=== PATIENT | female | born 1935 | race Caucasian/White ===

== ENCOUNTER 2019-03-26 07:01 | Day surgery (SDC) | payer MEDICARE, OTHER ==
[~2019-03-26 07:01] MED LIST: Lactated Ringers 1,000 ML IV ONE
[2019-03-26 07:34] VITALS: O2SAT 95
[2019-03-26] MEDS ORDERED: Ak-Dilate OPHTHALMIC*** 1.065 ML, Cyclogyl 1% OPHTH SOL 5 ML 1.065 ML, GATIFLOXACIN 0.5... OP ONE ×4 (08:00)
[2019-03-26] MEDS ORDERED: Lactated Ringers 1,000 ML IV SCH (08:00)
[2019-03-26] MEDS ORDERED: TETRACAINE 0.5% STERI-UNIT SOL OP ONE ×2 (08:00)
[2019-03-26] MEDS ORDERED: DIPRIVAN 200 MG/20 ML IV ONE (09:32)
[2019-03-26] MEDS ORDERED: Zofran 4 MG/2 ML VIAL IV PRN (10:00)
[2019-03-26] MEDS ORDERED: BSS 500 ML, Fortaz/Tazicef 1 GM** 0.2 G IO ONE ×2 (10:00)
[2019-03-26] MEDS ORDERED: LIDOCAINE HCL 1% AMPUL 5 ML IJ ONE (10:00)
[2019-03-26] MEDS ORDERED: ACETAZOLAMIDE 250 MG TABLET PO ONE (10:00)
[2019-03-26] MEDS ORDERED: BETADINE 5% OPHTHALMIC 30 ML OP ONE (10:00)
[2019-03-26] MEDS ORDERED: Epinephrine Preservative Free 1 MG/ML INTRAOP ONE (10:00)
[2019-03-26 10:46] VITALS: BP 189/83; PULSE 64
--- NOTE | 2019-03-26 14:30 | OP ---
DATE/TIME OF OPERATION: 03/26/2019 0930 TIME DICTATED: 1321 PREOPERATIVE DIAGNOSIS: Senile cataract of left eye. POSTOPERATIVE DIAGNOSIS: Senile cataract of left eye. SURGEON: Nikolas Gunter MD MAIL OFFICER: None. OPERATION: Cataract extraction of left eye with an intraocular lens implant. STANDARD __X___ COMPLEX ANESTHESIA: MAC. ___X___ Monitored anesthesia care in combination with topical and intra-cameral anesthesia (because of the established specific risk of reflux, arrhythmias, or an anxiety attack associated with ocular manipulation as well as difficulty of the technical maintenance technician to manage such potentially catastrophic events while simultaneously attempting to complete the surgical procedure, it was deemed necessary for the patient's safety to have an anesthesiologist or a nurse cadastral surveyor present during the procedure whenever possible. The anesthesiologist or the nurse cadastral surveyor was utilized to monitor and regulate the intravenous sedation of the patient, so the patient was cooperative, relaxed, and comfortable). Topical anesthesia using Tetracaine eye drops together with intra cameral anesthesia using Lidocaine 1% MPF. The nurse was utilized to monitor the patient. ANESTHESIA PROVIDER: Wood Gibbs CRNA. COMPLICATIONS: None. BLOOD LOSS: None. INDICATIONS: The patient is undergoing cataract surgery in the hopes of eliminating the visual complaints and difficulty. PROCEDURE: After arriving at the facility's outpatient surgery area, an IV was started; the patient was given 5 mg of p.o. Versed. (If an anesthesia provider was not monitoring the patient) The patient was then given topical anesthetic Tetracaine eye drops. A cotton pellet was soaked into a solution of a combination of Zymaxid 0.5%, Clemente-Synephrine 2.5% and Ocufen (other drops might have been substituted referenced in the patient's record). The pellet was inserted by the RN into the lower conjunctival cul-de-sac with a sterile forceps and left for 20 minutes. The pellet was then removed by the RN with a sterile forceps before taking the patient to the operating room. The preoperative area nurse identified the patient and marked the correct eye to be operated on. I identified the correct eye to be operated on and marked it appropriately in the outpatient surgery area. The patient was then taken into the operating room. Tetracaine eye drops were installed again in the correct eye. The eyelids and the lashes and the lid margins were scrubbed with Betadine solution. One drop of the diluted Betadine solution was placed in the conjunctival cul-de-sac for 45 seconds and then was irrigated. A drop of Tetracaine Gel was placed in the conjunctival cul-de-sac. The patient's forehead was taped to secure it during the procedure. The patient was monitored. The patient was then draped in the usual way for this procedure. An eye speculum was used to separate the eyelids. The eye was then fixated and a temporal 2.5 mm incision was made in the clear cornea temporally at the limbus. Through the incision, 0.25 cc of 1% non-preserved lidocaine was injected into the anterior chamber for intracameral anesthesia. The anterior chamber was then filled with viscoelastic. The pupil was small. I felt that it would be safer to mechanically dilate the pupil. A Malyugin ring was used at this point which dilated the pupil. That was removed at the end of the procedure prior to aspiration of the viscoelastic from the anterior chamber and posterior to the intraocular lens implant. The cataract had a great amount of cortical changes. That rendered seeing the anterior capsule difficult for a safe performance of an anterior capsulotomy. I injected an air bubble into the anterior chamber. I then injected 1 ML of vision blue solution into the anterior chamber. The vision blue solution was irrigated from the anterior chamber after 30 seconds. The anterior capsule was stained which facilitated performing the anterior capsulotomy safely. After that was completed, a cystotome was introduced into the anterior chamber and a round anterior capsulotomy was performed. The capsule was removed by a forceps. Hydrodissection was next carried utilizing a 25-gauge cannula and balanced salt solution to delineate the cortical material from the capsule and the nucleus from the cortical material. The nucleus was rotated freely into the capsular bag with no difficulty. The phaco tip of the [employer] Phacoemulsifier was introduced into the anterior chamber and two grooves were made into the nucleus 90 degrees apart. Using two spatulas resulted into the nucleus being fractured into four quadrants. The phaco tip was then used to remove each quadrant of the nucleus. Viscoelastic was used during this process to protect the corneal endothelium. Once the entire nucleus was removed, the phaco tip then was removed and the irrigation tip was introduced into the eye and the cortex was removed. The posterior capsule was polished. It was noticed that there was a tear into the posterior capsule with few vitreous strands into the pupil plan. An anterior vitrectomy was performed. A 20.00 diopter, SN60WF, posterior chamber lens implant, was inspected and found to be grossly normal. The implant was inserted into the implant injector cartridge; Viscoelastic again was introduced into the anterior chamber, which filled the capsular bag. The implant injector's cartridge tip was placed at the limbal wound and the posterior chamber implant was released into the capsular bag and rotated appropriately. The implant was found to be into the capsular bag and it was centered. 0.2 ml of Tri-Moxi was introduced via 27 gauge cannula into the vitreous cavity through the ciliary processes. Viscoelastic was aspirated from the anterior chamber and posterior to the intraocular lens implant from the capsular bag using the irrigating tip. The anterior chamber was irrigated and filled with 5 cc antibiotic solution (500 cc of BSS plus 2 ml of Fortaz 100 mg/ml) ( if patient was not allergic to the medication). The lips of the corneal incision were hydrated using BSS solution. The anterior chamber was checked and found to be water tight. ___X___ One drop each of antibiotic, steroid and NSAID drops (refer to chart for drops used) were placed in the conjunctival cul-de-sac of the operated eye. Patient tolerated the procedure quite well and left the operating room in satisfactory condition. DISCHARGE SUMMARY: The patient was released in stable condition. The patient and those with the patient were given an instruction sheet as of how to care for the eye after surgery as well as counseling on any abnormal laboratory studies by the postoperative RN. The patient was also given an appointment card for follow-up in the office and is to call immediately for any difficulties including but not limited to pain in the eye, decreased vision, discharge from the eye, headache and or fever. DISCHARGE DIAGNOSIS: Pseudophakia of left eye.
== END 2019-03-26 10:50 | disposition home or self-care (01) ==
LOC: SDC 07:01
PROVIDERS: ATTEND Ophthalmology
DX: H25.812 Combined forms of age-related cataract, left eye (principal)
CPT/HCPCS: 99100; C1780; J0171; J2704; A9270-GY

== ENCOUNTER 2019-04-23 09:01 | Day surgery (SDC) | payer MEDICARE, OTHER ==
[~2019-04-23 09:01] MED LIST changes: +Ak-Dilate OPHTHALMIC*** 1.065 ML, Cyclogyl 1% OPHTH SOL 5 ML 1.065 ML, GATIFLOXACIN 0.5... OP ONE; +Lactated Ringers 1,000 ML IV SCH; +TETRACAINE 0.5% STERI-UNIT SOL OP ONE
[2019-04-23] MEDS ORDERED: ACETAZOLAMIDE 250 MG TABLET PO ONE (10:00)
[2019-04-23] MEDS ORDERED: BETADINE 5% OPHTHALMIC 30 ML OP ONE (10:00)
[2019-04-23] MEDS ORDERED: BSS 500 ML, Fortaz/Tazicef 1 GM** 0.2 G IO ONE ×2 (10:00)
[2019-04-23] MEDS ORDERED: Zofran 4 MG/2 ML VIAL IV PRN (10:00)
[2019-04-23] MEDS ORDERED: LIDOCAINE HCL 1% AMPUL 5 ML IJ ONE (10:00)
[2019-04-23] MEDS ORDERED: Epinephrine Preservative Free 1 MG/ML INTRAOP ONE (10:00)
[2019-04-23] MEDS ORDERED: DIPRIVAN 200 MG/20 ML IV ONE (11:43)
[2019-04-23] MEDS ORDERED: TRANDATE 100 MG/20 ML MDV FOR DRIP IV ONE (12:24)
--- NOTE | 2019-04-23 15:45 | OP ---
DATE/TIME OF OPERATION: 04/23/2019 1145 TIME DICTATED: 1442 PREOPERATIVE DIAGNOSIS: Senile cataract of right eye. POSTOPERATIVE DIAGNOSIS: Senile cataract of right eye. SURGEON: Nikolas Gunter MD GI PHYSICIAN: None. OPERATION: Cataract extraction of right eye with an intraocular lens implant. STANDARD __X__ COMPLEX ANESTHESIA: MAC. ___X___ Monitored anesthesia care in combination with topical and intra-cameral anesthesia (because of the established specific risk of reflux, arrhythmias, or an anxiety attack associated with ocular manipulation as well as difficulty of the tree puller to manage such potentially catastrophic events while simultaneously attempting to complete the surgical procedure, it was deemed necessary for the patient's safety to have an anesthesiologist or a nurse consultant [employer]. vice [employer] (ex ) present during the procedure whenever possible. The anesthesiologist or the nurse consultant luxury and [employer]. vice president [employer] (ex ) was utilized to monitor and regulate the intravenous sedation of the patient, so the patient was cooperative, relaxed, and comfortable). Topical anesthesia using Tetracaine eye drops together with intra cameral anesthesia using Lidocaine 1% MPF. The nurse was utilized to monitor the patient. ANESTHESIA PROVIDER: Wood Gibbs CRNA. COMPLICATIONS: None. BLOOD LOSS: None. INDICATIONS: The patient is undergoing cataract surgery in the hopes of eliminating the visual complaints and difficulty. PROCEDURE: After arriving at the facility's outpatient surgery area, an IV was started; the patient was given 5 mg of p.o. Versed. (If an anesthesia provider was not monitoring the patient) The patient was then given topical anesthetic Tetracaine eye drops. A cotton pellet was soaked into a solution of a combination of Zymaxid 0.5%, Clemente-Synephrine 2.5% and Ocufen (other drops might have been substituted referenced in the patient's record). The pellet was inserted by the RN into the lower conjunctival cul-de-sac with a sterile forceps and left for 20 minutes. The pellet was then removed by the RN with a sterile forceps before taking the patient to the operating room. The preoperative area nurse identified the patient and marked the correct eye to be operated on. I identified the correct eye to be operated on and marked it appropriately in the outpatient surgery area. The patient was then taken into the operating room. Tetracaine eye drops were installed again in the correct eye. The eyelids and the lashes and the lid margins were scrubbed with Betadine solution. One drop of the diluted Betadine solution was placed in the conjunctival cul-de-sac for 45 seconds and then was irrigated. A drop of Tetracaine Gel was placed in the conjunctival cul-de-sac. The patient's forehead was taped to secure it during the procedure. The patient was monitored. The patient was then draped in the usual way for this procedure. An eye speculum was used to separate the eyelids. The eye was then fixated and a temporal 2.5 mm incision was made in the clear cornea temporally at the limbus. Through the incision, 0.25 cc of 1% non-preserved lidocaine was injected into the anterior chamber for intracameral anesthesia. The anterior chamber was then filled with viscoelastic. The pupil was small. I felt that it would be safer to mechanically dilate the pupil. A Malyugin ring was used at this point which dilated the pupil. That was removed at the end of the procedure prior to aspiration of the viscoelastic from the anterior chamber and posterior to the intraocular lens implant. The cataract had a great amount of cortical changes. That rendered seeing the anterior capsule difficult for a safe performance of an anterior capsulotomy. I injected an air bubble into the anterior chamber. I then injected 1 ML of vision blue solution into the anterior chamber. The vision blue solution was irrigated from the anterior chamber after 30 seconds. The anterior capsule was stained which facilitated performing the anterior capsulotomy safely. After that was completed, a cystotome was introduced into the anterior chamber and a round anterior capsulotomy was performed. The capsule was removed by a forceps. Hydrodissection was next carried utilizing a 25-gauge cannula and balanced salt solution to delineate the cortical material from the capsule and the nucleus from the cortical material. The nucleus was rotated freely into the capsular bag with no difficulty. The phaco tip of the [employer] Phacoemulsifier was introduced into the anterior chamber and two grooves were made into the nucleus 90 degrees apart. Using two spatulas resulted into the nucleus being fractured into four quadrants. The phaco tip was then used to remove each quadrant of the nucleus. Viscoelastic was used during this process to protect the corneal endothelium. Once the entire nucleus was removed, the phaco tip then was removed and the irrigation tip was introduced into the eye and the cortex was removed. The posterior capsule was polished. It was noticed that there was a tear into the posterior capsule with few vitreous strands into the pupil plan. An anterior vitrectomy was performed. A 19.00 diopter, SN60WF, posterior chamber lens implant, was inspected and found to be grossly normal. The implant was inserted into the implant injector cartridge; Viscoelastic again was introduced into the anterior chamber, which filled the capsular bag. The implant injector's cartridge tip was placed at the limbal wound and the posterior chamber implant was released into the capsular bag and rotated appropriately. The implant was found to be into the capsular bag and it was centered. 0.2 ml of Tri-Moxi was introduced via 27 gauge cannula into the vitreous cavity through the ciliary processes. Viscoelastic was aspirated from the anterior chamber and posterior to the intraocular lens implant from the capsular bag using the irrigating tip. The anterior chamber was irrigated and filled with 5 cc antibiotic solution (500 cc of BSS plus 2 ml of Fortaz 100 mg/ml) ( if patient was not allergic to the medication). The lips of the corneal incision were hydrated using BSS solution. The anterior chamber was checked and found to be water tight. ___X___ One drop each of antibiotic, steroid and NSAID drops (refer to chart for drops used) were placed in the conjunctival cul-de-sac of the operated eye. Patient tolerated the procedure quite well and left the operating room in satisfactory condition. DISCHARGE SUMMARY: The patient was released in stable condition. The patient and those with the patient were given an instruction sheet as of how to care for the eye after surgery as well as counseling on any abnormal laboratory studies by the postoperative RN. The patient was also given an appointment card for follow-up in the office and is to call immediately for any difficulties including but not limited to pain in the eye, decreased vision, discharge from the eye, headache and or fever. DISCHARGE DIAGNOSIS: Pseudophakia of right eye.
[2019-04-23 16:31] VITALS: O2SAT 95
[2019-04-23 16:37] VITALS: BP 170/86; PULSE 78
== END 2019-04-23 13:25 | disposition home or self-care (01) ==
LOC: SDC 09:01
PROVIDERS: ATTEND Ophthalmology
DX: H25.811 Combined forms of age-related cataract, right eye (principal)
CPT/HCPCS: 99100; C1780; J0171; J2704; A9270-GY

== ENCOUNTER 2019-06-16 06:02 | Inpatient (IN) | payer MEDICARE, OTHER ==
[2019-06-16] MEDS ORDERED: BABY ASPIRIN 81 MG CHEW PO ONE (06:24)
[2019-06-16] MEDS ORDERED: Vasotec 5 MG PO ONE (06:30)
--- NOTE | 2019-06-16 06:31 | ERPHSYRPT ---
- History of Present Illness Source: patient, family Exam Limitations: no limitations Patient Subjective Stated Complaint: pt states she woke up this morning with double vision. Triage Nursing Assessment: pt alert and oriented, answers questions approp. pt ambulatory with steady gait noted. respirations nonlabored with lungs cta. pupils equal and reactive. registrar assistant equal bilat. no facial droop noted. Time of Onset/Last Time Seen Normal: 30 minutes ago Timing/Duration: today Severity: mild Character of Deficits: none Deficits: no difficulties Baseline/Normal Cognition: alert oriented x 3 Current Cognition: alert oriented x 3 Baseline Gait: walks w/o assistance Associated Symptoms: vision changes Hx Tetanus, Diphtheria Vaccination/Date Given: No Hx Influenza Vaccination/Date Given: No Hx Pneumococcal Vaccination/Date Given: No Immunizations Up to Date: No <URVASHI,NINA - Last Filed: 06/16/19 06:33> <LYNN MOREIRA - Last Filed: 06/16/19 09:31> - History of Present Illness Time Seen by Provider: 06/16/19 06:26 Physician History: pt states she woke up this morning with double vision. Denies any other symptoms , alert awake oriented to time place and person, no any other deficit. walkin and talking normal (URVASHI,NINA) Allergies/Adverse Reactions: No Known Drug Allergies Allergy (Verified 06/16/19 06:16) Home Medications: Multivitamin [Daily Multivitamin] 1 each PO DAILY 03/21/19 [History] Aspirin EC 81 mg [Ecotrin 81 mg] 81 mg PO DAILY 03/26/19 [History] - Review of Systems Constitutional: No Fever, No Chills Eyes: Double Vision (right eye) Ears, Nose, & Throat: No Symptoms Respiratory: No Cough, No Dyspnea Cardiac: No Chest Pain, No Edema, No Syncope Abdominal/Gastrointestinal: No Abdominal Pain, No Nausea, No Vomiting, No Diarrhea Genitourinary Symptoms: No Dysuria Musculoskeletal: No Back Pain, No Neck Pain Skin: No Rash Neurological: No Dizziness, No Focal Weakness, No Sensory Changes Psychological: No Symptoms Endocrine: No Symptoms All Other Systems: Reviewed and Negative <URVASHI,NINA - Last Filed: 06/16/19 06:33> - Past Medical History Pertinent Past Medical History: Yes Neurological History: No Pertinent History ENT History: Cataracts Cardiac History: No Pertinent History Respiratory History: No Pertinent History Endocrine Medical History: No Pertinent History Musculoskeletal History: No Pertinent History GI Medical History: No Pertinent History History: No Pertinent History Psycho-Social History: No Pertinent History Female Reproductive Disorders: No Pertinent History - Past Surgical History Past Surgical History: Yes Neuro Surgical History: No Pertinent History Cardiac: No Pertinent History Respiratory: No Pertinent History Gastrointestinal: No Pertinent History Genitourinary: No Pertinent History Musculoskeletal: No Pertinent History Female Surgical History: No Pertinent History - Social History Smoking Status: Current every day smoker How long have you smoked: 60yrs Exposure to second hand smoke: Yes Drug Use: none Patient Lives Alone: Yes <URVASHI - Last Filed: 06/16/19 06:33> - Tania Coma Scale Best Eye Response (Tania): (4) open spontaneously Best Verbal Response ([place]): (5) oriented Best Motor Response ([place]): (6) obeys commands Tania Total: 15 - Physical Exam General Appearance: no apparent distress, alert Eye Exam: bilateral eye: PERRL, EOMI Ears, Nose, Throat Exam: normal ENT inspection, moist mucous membranes Neck Exam: normal inspection, non-tender, supple Respiratory: normal breath sounds, lungs clear, airway intact, No respiratory distress Cardiovascular: regular rate/rhythm, No edema Gastrointestinal: soft, No tenderness, No distention Back Exam: normal inspection Extremity Exam: normal inspection, No pedal edema Mental Status: alert, oriented x 3, cooperative promotional marketing analyst Exam: normal speech, PERRL, tongue midline Coordination/Gait: normal finger to nose, normal gait, normal cerebellar function Motor/Sensory: no motor deficit, no sensory deficit Skin Exam: normal color, warm, dry, No rash SpO2 Interpretation: normal SpO2: 97 O2 Delivery: Room Air <URVASHI - Last Filed: 06/16/19 06:33> <LYNN MOREIRA - Last Filed: 06/16/19 09:31> - Nursing Vital Signs Nursing Vital Signs: Initial Vital Signs Temperature 97.6 F 06/16/19 06:08 Pulse Rate 87 06/16/19 06:08 Respiratory Rate 16 06/16/19 06:08 Blood Pressure 195/103 06/16/19 06:08 O2 Sat by Pulse Oximetry 97 06/16/19 06:08 Pain Scale Pain Intensity 0 - Physical Exam Comments: eexamination upon transfer of care and indicates disconjugate gaze. The patient complains of diagonal diplopia. There is nystagmus displayed in the left eye especially with upper gaze suspicion is of a lacunar infarct affecting cranial nerves 3 sparing the pupil. We are awaiting the patella neurology evaluation. 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) <LYNN MOREIRA - Last Filed: 06/16/19 09:31> Ordered Tests: Active Orders 24 hr Category Date Time Status Up Ad Marianne ROUTINE Activity 06/16/19 09:22 Ordered Admit as Inpatient ROUTINE Care 06/16/19 09:15 Ordered Lead Supply Worker STAT Care 06/16/19 06:25 Active Code Status Order ROUTINE Care 06/16/19 09:15 Ordered EKG-ER Only STAT Care 06/16/19 06:24 Active IV Care Q6H Care 06/16/19 09:15 Ordered NPO (ED) STAT Care 06/16/19 06:24 Active Neuro Checks Q4H Care 06/16/19 09:15 Ordered Telemetry q6h Care 06/16/19 09:15 Ordered Consult Neurology ROUTINE Cons 06/16/19 09:15 Ordered Consult Tele-Health [Tele-Health Consult] ROUTINE Cons 06/16/19 08:16 Active CHEST 2 VIEWS (PA AND LAT) Stat Exams 06/16/19 06:24 Taken HEAD WITHOUT CONTRAST [CT] Stat Exams 06/16/19 06:24 Taken CBC W DIFF Stat Lab 06/16/19 06:37 Completed CMP Stat Lab 06/16/19 06:37 Completed CULTURE,URINE Stat Lab 06/16/19 08:47 Received Erythrocyte Sedimentation Rate Stat Lab 06/16/19 09:25 Ordered PROTIME WITH INR Stat Lab 06/16/19 06:37 Completed TSH, 3RD Generation Stat Lab 06/16/19 09:25 Ordered UA W/RFX UR CULTURE Stat Lab 06/16/19 08:47 Completed Medication Summary Generic Name Dose Route Start Last Admin Trade Name Javon PRN Reason Stop Dose Admin Sodium Chloride 1,000 mls @ 100 mls/hr 06/16/19 06:30 06/16/19 09:22 Sodium Chloride 0.9% 1000 Ml IV 07/16/19 06:29 Infused .Q10H PAMELA Infusion Discontinued Medications Generic Name Dose Route Start Last Admin Trade Name Javon PRN Reason Stop Dose Admin Aspirin 81 mg 06/16/19 06:24 06/16/19 07:05 Baby Aspirin 81 Mg Chew PO 06/16/19 06:25 81 mg STAT ONE Administration Clonidine 0.1 mg 06/16/19 06:52 06/16/19 07:04 Catapres 0.1 Mg PO 06/16/19 06:53 0.1 mg STAT ONE Administration Clonidine Confirm 06/16/19 06:57 Catapres 0.1 Mg Administered 06/16/19 06:58 Dose 0.1 mg .ROUTE .STK-MED ONE Clonidine Confirm 06/16/19 07:03 Catapres 0.1 Mg Administered 06/16/19 07:04 Dose 0.1 mg .ROUTE .STK-MED ONE Enalapril Maleate 2.5 mg 06/16/19 06:30 06/16/19 07:05 Vasotec 5 Mg PO 06/16/19 06:31 2.5 mg STAT ONE Administration Enalapril Maleate Confirm 06/16/19 07:00 Vasotec 10 Mg Administered 06/16/19 07:01 Dose 10 mg .ROUTE .STK-MED ONE Lab/Rad Data: Laboratory Result Diagrams 06/16/19 06:37 06/16/19 06:37 Laboratory Results 06/16/19 06/16/19 06/16/19 Range/Units 08:47 06:37 06:37 WBC (4.0-10.5) K/mm3 RBC (4.1-5.4) M/mm3 Hgb (12.0-16.0) gm/dl Hct (35-47) % MCV (78-100) fl MCH (26-32) pg MCHC (32-36) g/dl RDW (11.5-14.0) % Plt Count (150-450) K/mm3 MPV (6-9.5) fl Gran % (36.0-66.0) % Eos # (Auto) (0-0.5) Absolute Lymphs (auto) (1.0-4.6) Absolute Monos (auto) (0.0-1.3) Lymphocytes % (24.0-44.0) % Monocytes % (0.0-12.0) % Eosinophils % (0.00-5.0) % Basophils % (0.0-0.4) % Absolute Granulocytes (1.4-6.9) Basophils # (0-0.4) PT 12.5 H (9.95-12.35) SECONDS INR 1.10 (0.8-3.0) Sodium 143 (137-145) mmol/L Potassium 4.2 (3.5-5.1) mmol/L Chloride 108 H (98-107) mmol/L Carbon Dioxide 29 (22-30) mmol/L Anion Gap 10.0 (5-15) MEQ/L BUN 16 (7-17) mg/dL Creatinine 0.66 (0.52-1.04) mg/dL Estimated GFR > 60.0 ML/MIN Glucose 109 H (74-106) mg/dL Calcium 9.6 (8.4-10.2) mg/dL Total Bilirubin 0.50 (0.2-1.3) mg/dL AST 25 (14-36) U/L ALT 11 (0-35) U/L Alkaline Phosphatase 55 (38-126) U/L Serum Total Protein 6.9 (6.3-8.2) g/dL Albumin 3.9 (3.5-5.0) g/dL Urine Color YELLOW (YELLOW) Urine Appearance CLEAR (CLEAR) Urine pH 6.0 (5-6) Ur Specific [place] 1.010 (1.005-1.025) Urine Protein NEGATIVE (Negative) Urine Ketones NEGATIVE (NEGATIVE) Urine Blood MODERATE (0-5) Chong/ul Urine Nitrite NEGATIVE (NEGATIVE) Urine Bilirubin NEGATIVE (NEGATIVE) Urine Urobilinogen NEGATIVE (0-1) mg/dL Ur Leukocyte Esterase LARGE (NEGATIVE) Urine WBC (Auto) 16-25 (0-5) /HPF Urine RBC (Auto) 6-10 (0-2) /HPF U Epithel Cells (Auto) NONE (FEW) /HPF Urine Bacteria (Auto) FEW (NEGATIVE) /HPF Ur Dysmorphic RBCs (0-2) /HPF U Trichomonas (Auto) PRESENT (NEGATIVE) /HPF Urine Culture Reflexed YES (NO) Urine Glucose NEGATIVE (NEGATIVE) mg/dL 06/16/19 Range/Units 06:37 WBC 7.6 (4.0-10.5) K/mm3 RBC 4.16 (4.1-5.4) M/mm3 Hgb 13.0 (12.0-16.0) gm/dl Hct 39.7 (35-47) % MCV 95.4 (78-100) fl MCH 31.3 (26-32) pg MCHC 32.7 (32-36) g/dl RDW 13.1 (11.5-14.0) % Plt Count 275 (150-450) K/mm3 MPV 9.5 (6-9.5) fl Gran % 67.7 H (36.0-66.0) % Eos # (Auto) 0.23 (0-0.5) Absolute Lymphs (auto) 1.73 (1.0-4.6) Absolute Monos (auto) 0.47 (0.0-1.3) Lymphocytes % 22.6 L (24.0-44.0) % Monocytes % 6.2 (0.0-12.0) % Eosinophils % 3.0 (0.00-5.0) % Basophils % 0.5 (0.0-0.4) % Absolute Granulocytes 5.17 (1.4-6.9) Basophils # 0.04 (0-0.4) PT (9.95-12.35) SECONDS INR (0.8-3.0) Sodium (137-145) mmol/L Potassium (3.5-5.1) mmol/L Chloride (98-107) mmol/L Carbon Dioxide (22-30) mmol/L Anion Gap (5-15) MEQ/L BUN (7-17) mg/dL Creatinine (0.52-1.04) mg/dL Estimated GFR ML/MIN Glucose (74-106) mg/dL Calcium (8.4-10.2) mg/dL Total Bilirubin (0.2-1.3) mg/dL AST (14-36) U/L ALT (0-35) U/L Alkaline Phosphatase (38-126) U/L Serum Total Protein (6.3-8.2) g/dL Albumin (3.5-5.0) g/dL Urine Color (YELLOW) Urine Appearance (CLEAR) Urine pH (5-6) Ur Specific [place] (1.005-1.025) Urine Protein (Negative) Urine Ketones (NEGATIVE) Urine Blood (0-5) Chong/ul Urine Nitrite (NEGATIVE) Urine Bilirubin (NEGATIVE) Urine Urobilinogen (0-1) mg/dL Ur Leukocyte Esterase (NEGATIVE) Urine WBC (Auto) (0-5) /HPF Urine RBC (Auto) (0-2) /HPF U Epithel Cells (Auto) (FEW) /HPF Urine Bacteria (Auto) (NEGATIVE) /HPF Ur Dysmorphic RBCs (0-2) /HPF U Trichomonas (Auto) (NEGATIVE) /HPF Urine Culture Reflexed (NO) Urine Glucose (NEGATIVE) mg/dL <NINA LANDIN - Last Filed: 06/16/19 06:33> - Departure Departure Disposition: In-patient Admission Critical Care Time: Yes Critical Care Time(excluding separately billable procedures): Critical 30-74 mins <LYNN MOREIRA - Last Filed: 06/16/19 09:31> - Departure Clinical Impression: CVA (cerebral vascular accident) Condition: Fair
[2019-06-16 06:41] LABS: Absolute Neutrophil Ct (ANC) 5.17 (1.4-6.9); BASOPHIL % 0.5 % (0.0-0.4); Basophil (Absolute #) 0.04 (0-0.4); Eosinophil (Absolute #) 0.23 (0-0.5); Hematocrit 39.7 % (35-47); Lymphocyte (Absolute #) 1.73 (1.0-4.6); Lymphocytes % 22.6 % (24.0-44.0); Mean Cell Volume 95.4 fl (78-100); Mean Corpuscular Hemoglobin 31.3 pg (26-32); Mean Corpuscular Hgb Concent. 32.7 g/dl (32-36); Mean Platelet Volume 9.5 fl (6-9.5); Monocyte (Absolute #) 0.47 (0.0-1.3); Monocytes % 6.2 % (0.0-12.0); Neutrophil % 67.7 % (36.0-66.0); Platelet Count 275 K/mm3 (150-450); Red Blood Count 4.16 M/mm3 (4.1-5.4); Red Cell Distribution Width 13.1 % (11.5-14.0); White Blood Count 7.6 K/mm3 (4.0-10.5)
[2019-06-16 06:46] LABS: INR 1.1 (0.8-3.0); PROTIME 12.5 SECONDS (9.95-12.35)
[2019-06-16 06:50] LABS: ALBUMIN 3.9 g/dL (3.5-5.0); ALKALINE PHOSPHATASE 55 U/L (38-126); BLOOD UREA NITROGEN 16 mg/dL (7-17); CHLORIDE 108 mmol/L (98-107); Calcium 9.6 mg/dL (8.4-10.2); Carbon Dioxide 29 mmol/L (22-30); Creatinine 1 0.66 mg/dL (0.52-1.04); Glucose 109 mg/dL (74-106); Potassium 4.2 mmol/L (3.5-5.1); SGOT/AST 25 U/L (14-36); SGPT/ALT 11 U/L (0-35); SODIUM 143 mmol/L (137-145); Total Protein 6.9 g/dL (6.3-8.2)
[2019-06-16] MEDS ORDERED: Catapres 0.1 MG PO ONE (06:52)
[2019-06-16] MEDS ORDERED: Catapres 0.1 MG ONE ×2 (06:57→07:03)
[2019-06-16] MEDS ORDERED: Vasotec 10 MG ONE (07:00)
[2019-06-16] MEDS: Sodium Chloride 0.9% 1000 ML 1,000 ML IV SCH ×2 (07:08→18:41)
[2019-06-16 08:54] LABS: Appearance CLEAR (CLEAR); Bacteria FEW /HPF (NEGATIVE); Bilirubin NEGATIVE (NEGATIVE); Blood MODERATE Ery/ul (0-5); Glucose NEGATIVE (NEGATIVE); Ketones NEGATIVE (NEGATIVE); Leukocyte Esterase LARGE (NEGATIVE); Nitrite NEGATIVE (NEGATIVE); Protein,Urine Dip NEGATIVE (Negative); Urobilinogen NEGATIVE mg/dL (0-1)
[2019-06-16 09:07] LABS: Trichomonas PRESENT /HPF (NEGATIVE)
--- NOTE | 2019-06-16 09:15 | XRAY ---
Indication: Visual problems. Possible stroke. Comparison: None PA/lateral chest hyperinflated and clear. Heart is not enlarged. Aorta is moderately arteriosclerotic with tortuous descending aorta. Bony thorax intact with osteopenia and mild degenerative changes. Impression: Nonacute hyperinflated chest with chronic features.
--- NOTE | 2019-06-16 09:22 | XRAY ---
Indication: Double vision. Stroke. Multiple contiguous axial images obtained through the head without contrast. Comparison: None Age-appropriate global atrophy and mild periventricular degenerative micro-ischemia bilaterally. No acute intracranial hemorrhage, abnormal extra-axial fluid collection, or mass effect. Fourth ventricle is midline without hydrocephalus. Tompkins-white matter differentiation preserved. Bony calvarium intact. Paranasal sinuses and mastoid air cells are clear. At the level of the vocal cords, there is a incompletely visualized 2.1 cm right neck hypodense soft tissue mass. Impression: 1. Nonacute senile brain. 2. Incidental partially visualized right neck soft tissue mass. CT neck with contrast exam may yield further information. Comment: Preliminary interpretation was made by [facility] who does not report incidental neck soft tissue mass. Telephone report given to Dr. Mcnulty in the at 0917 hrs. on June 16, 2019.
[2019-06-16] MEDS ORDERED: Aplisol ID ONE (09:29)
[2019-06-16] MEDS: Flagyl 500 MG PO SCH ×3 (11:30→21:15)
[2019-06-16] MEDS: BACTRIM DS TABLET PO SCH ×2 (13:43→21:16)
[2019-06-17] MEDS: Sodium Chloride 0.9% 1000 ML 1,000 ML IV SCH ×2 (03:31→15:01)
[2019-06-17] MEDS: Flagyl 500 MG PO SCH ×3 (09:46→21:09)
[2019-06-17] MEDS: BACTRIM DS TABLET PO SCH ×2 (09:47→21:09)
[2019-06-17] MEDS: ECOTRIN 81 MG PO SCH (09:47)
[2019-06-17] MEDS: THERAGRAN MULTIVITAMIN PO SCH (09:47)
[2019-06-17] MEDS ORDERED: NON-FORMULARY ITEM (Multivitamin [Daily Multivitamin] 1 EACH) PO SCH (10:00)
--- NOTE | 2019-06-17 10:53 | PCM.HP ---
History of Present Illness - Chief Complaint Chief Complaint: cva Date: 06/17/19 History of Present Illness: is a 84 year old female admitted from ER yesterday for possible CVA. Patient reports that she woke up yesterday morning with double vision. She immediately went to the ER to be evaluated. Patient states that this has never happened before. She states that her vision is still double and appears to be her R eye she is reporting that is more affected. Patient denied any associated headaches when she woke up yesterday. Patient denies any medical problems that she takes medications for on a regular basis. Patient denies any other associated symptoms. She reports that she is anxious to go home. She was unaware that she had a UTI as she was not having any dysuria or hematuria. Patient reports that she smokes 1 ppd. - Review of Systems Constitutional: No Fever Eyes: Double Vision Ears, Nose, & Throat: No No Symptoms Respiratory: No Cough, No Short Of Breath Cardiac: Other (Patient reports hx of heart murmur that she has had her whole life), No Chest Pain Abdominal/Gastrointestinal: No No Symptoms Genitourinary Symptoms: No Dysuria, No Frequency, No Hematuria Musculoskeletal: No No Symptoms Skin: No No Symptoms Neurological: No Dizziness, No Headache Psychological: No Alcohol Abuse, No Drug Abuse Hematologic/Lymphatic: No Anemia Medications & Allergies Home Medications: Home Medication List Multivitamin [Daily Multivitamin] 1 each PO DAILY 03/21/19 [History Confirmed ] Aspirin EC 81 mg [Ecotrin 81 mg] 81 mg PO DAILY 03/26/19 [History Confirmed 06/16/19] Allergies/Adverse Reactions: Allergies Allergy/AdvReac Type Severity Reaction Status Date / Time No Known Drug Allergies Allergy Verified 06/16/19 06:16 - Past Medical History Past Medical History: Yes Neurological History: No Pertinent History ENT History: Cataracts Cardiac History: No Pertinent History CARDIAC HISTORY: Other (heart murmur) Respiratory History: No Pertinent History Endocrine Medical History: No Pertinent History Musculoskelatal History: No Pertinent History GI Medical History: No Pertinent History History: No Pertinent History Pyscho-Social History: No Pertinent History Reproductive Disorders: No Pertinent History, Other (Patient still has all her female anatomy per patient) - Female History Are you now?: No - Past Surgical History Past Surgical History: Yes Neuro Surgical History: No Pertinent History Cardiac History: No Pertinent History Respiratory Surgery: No Pertinent History GI Surgical History: No Pertinent History Genitourinary Surgical Hx: No Pertinent History Musculskeletal Surgical Hx: No Pertinent History Female Surgical History: No Pertinent History - Social History Smoking Status: Current every day smoker How long have you smoked: 61 yrs Exposure to second hand smoke: Yes Alcohol: Daily Drug Use: none - Physical Exam Vital Signs: Vital Signs - 24 hr Temp Pulse Resp BP Pulse Ox 06/17/19 06:53 98.4 F 68 18 135/62 97 06/17/19 04:00 22 06/17/19 03:43 98.9 F 76 24 144/68 92 L 06/17/19 00:00 17 06/16/19 23:38 98.7 F 64 17 132/60 93 L 06/16/19 20:00 16 06/16/19 19:12 98.7 F 71 16 145/67 92 L 06/16/19 16:00 98.4 F 69 18 117/58 93 L 06/16/19 12:00 98.2 F 65 20 136/64 96 General Appearance: no apparent distress Neurologic Exam: alert, oriented x 3, sweep molder II-XII nml as tested, other (Patient appears agitated and was easily irritated when asked questions about health history. Patient's neuro exam showed mild deficit of cerebellar system with finger nose being slightly off on R side. Patient's cranial nerves appeared to be intact. Limited fundoscopic exam unable to appreciate clear picture of optic disc. Unable to evaluate increased occular pressure as no chio pen was available. Patient did have 2-3 beats of nystagmus of eyes bilaterally. No facial droop appreciated. Patient's cover uncover test was normal.) Eye Exam: PERRL/EOMI, other (Nystagmus present persistent lateral beats both eyes. Fundoscopic exam was limited and optic disc was not well visualized.), No photophobia Ears, Nose, Throat Exam: moist mucous membranes Neck Exam: normal inspection, carotid bruit (Systolic murmur radiates left side neck.), No lymphadenopathy Respiratory Exam: normal breath sounds Cardiovascular Exam: regular rate/rhythm, normal heart sounds, murmur (Grade 3- 4 systolic murmur), No gallop Gastrointestinal/Abdomen Exam: soft, normal bowel sounds, No tenderness, No distention, No guarding Pelvic Exam: not done Rectal Exam: not done Back Exam: normal inspection Extremity Exam: normal inspection, normal range of motion, No pedal edema Skin Exam: normal color, warm, dry, No rash Results - Labs Lab/Micro Results: Lab Results-Last 24 Hours 06/17/19 Range/Units 09:25 Hemoglobin A1c 5.12 (4.5-6.0) % Microbiology 06/16/19 08:47 Urine Culture - Preliminary Clean Catch Midstream GRAM NEGATIVE ID AND SENSITIVITY PENDING - Radiology Impressions Radiology Exams & Impressions: Radiology Procedures Category Date Time Status CHEST 2 VIEWS (PA AND LAT) Stat Exams 06/16/19 06:24 Completed ECHO W/2D AND DOPPLER [US] Urgent Exams 06/17/19 09:20 Taken HEAD WITHOUT CONTRAST [CT] Stat Exams 06/16/19 06:24 Completed MRA BRAIN WITHOUT CONTRAST [MRI] Urgent Exams 06/17/19 08:55 Ordered MRA NECK WITH CONTRAST [MRI] Urgent Exams 06/17/19 08:55 Ordered MRI BRAIN W & W/O CONTRAST [MRI] Urgent Exams 06/17/19 08:44 Ordered Assessment/Plan (1) CVA (cerebral vascular accident) Current Visit: Yes Status: Acute Assessment & Plan: Patient's only neurologic complaint is diplopia. CT imaging neg for acute stroke but did show possible old lucanar infarct. Unclear etiology. Tele neuro was consulted and recommended MRI and MRA imaging, additional labs to evaluate thyroid, andrea, esr, and other labs. Tele neuro also recommended LP and optho referral. Patient will continue with neuro checks. PT and OT ordered. Patient had finding on CT right side of her neck that further imaging was recommended will follow up on MRA as comparison. Echo was ordered and pending. Patient wants to leave the hospital. I discussed that she is able to leave but that it would AMA as i dont feel comfortable sending her home when she is still experiencing diplopia although is it slightly improved. Patient smokes one pack per day and has not interest in quitting. Patient has nystagmus and was slightly diminished on finger nose testing R side. The rest of neuro exam appeared benign. Will follow up on imaging and determine if patient needs to transfer to another facility or can continue workup as outpatient. Code(s): I63.9 - CEREBRAL INFARCTION, UNSPECIFIED (2) Diplopia Current Visit: Yes Status: Acute Assessment & Plan: Etiology unclear. CT scan did not show acute stroke. Patient will have recommended work up to fully evaluate for stroke. Patient has a 2-3 beat lateral nystagmus on physical exam both eyes. Limited fundoscopic exam and I was unable to visualize optic disc. Unable to evaluate if increased occular pressure as the hospital does not have a chio pen. Tele neuro recommended optho referral if patient was still experiencing diplopia. This hospital does not have an optho dr that we can consult in house so will have to consider transfer to another facility or workup as outpatient. Patient is consenting to MRI and MRA and labs however she was unsure is she wanted to continue with recommending testing of LP and to evaluate for additional causes of diplopia and consideration for transfer to another facility that has optho. Code(s): H53.2 - DIPLOPIA (3) Systolic murmur Current Visit: Yes Status: Acute Assessment & Plan: Patient reports hx of heart murmur. It radiates up to her left carotid. Will get echo to evaluate murmur. Patient may need to follow up with [facility] as outpatient for further evaluation or treatment if needed. Code(s): R01.1 - CARDIAC MURMUR, UNSPECIFIED (4) UTI (urinary tract infection) Current Visit: Yes Status: Acute Assessment & Plan: Blood and leukocytes present on UA. Nitrite neg culture still pending but initially showed gram neg. Patient denies any symptoms. Patient has started on Bactrim for UTI by ER physician. Code(s): N39.0 - URINARY TRACT INFECTION, SITE NOT SPECIFIED (5) Trichomoniasis Current Visit: Yes Status: Acute Assessment & Plan: Present in urine. Patient did not report any other vaginal symptoms of foul odor or increased discharge. Patient was started on flagyl in ER
[2019-06-17 11:05] LABS: T4 (Thyroxine) 6.84 ug/dL (5.53-10.96)
[2019-06-17] MEDS: SYNTHROID 25 MCG PO SCH (12:19)
--- NOTE | 2019-06-17 14:14 | XRAY ---
Indication: Double vision. Sagittal, coronal, and axial MRI brain was performed using pre-and post T1, T2, FLAIR, diffusion, and ADC sequences. 10 cc Dotarem contrast used. Comparison: None Age-appropriate global atrophy and moderate periventricular degenerative micro-ischemia signal bilaterally. Rickey of the brainstem demonstrates additional degenerative micro-ischemia signal. Diffusion images demonstrates a 6 x 10 mm left basal ganglia, 5 x 11 mm left caudate head, and 6 mm left mid khanna radiata foci of restricted signal favoring acute micro-ischemia. Also 3-4 mm right mid cerebellum/left vermis and 4 x 9 mm left mid cerebellum acute micro-ischemia. Right rickey and possibly right cerebral peduncle demonstrates punctate foci of acute micro-ischemia. No acute intracranial hemorrhage, abnormal extra-axial fluid collection, or mass effect. Postcontrast images are negative for abnormal enhancing intra-or extra-axial mass. Fourth ventricle is midline without hydrocephalus. 7/8 cranial nerve complex bilaterally symmetric. Normal flow void signal within the major intracerebral circulation. Normal appearing craniocervical junction and sella turcica. Paranasal sinuses are clear. Impression: 1. Multiple foci of acute micro-ischemia involving both cerebellum, left cerebral hemisphere, and brainstem as detailed. No acute hemorrhage or mass effect. Multiplicity and bilaterality raises suspicion for possible embolic phenomena. 2. Global atrophy and degenerative micro-ischemia within normal limits for patient's age. 3. Negative contrasted exam.
--- NOTE | 2019-06-17 14:21 | XRAY ---
Indication: Double vision. Multi slab 3-D [id number] MRA [place] was performed. Comparison: None Distal internal carotid arteries are bilaterally symmetric without critical stenosis, obstruction, or AV malformation. Normal carotid terminus with normal branching anterior and middle cerebral arteries bilaterally. Remaining visualized anterior and middle cerebral arteries are normal in MRA appearance. Anterior communicating and posterior communicating arteries not seen possibly too small for resolution of exam. Posterior circulation demonstrates distal right vertebral artery slightly larger in caliber. Basilar artery is normal in course and caliber with normal branching posterior cerebral, superior cerebellar, and anterior inferior cerebellar arteries bilaterally. Impression: Negative MRA [place].
--- NOTE | 2019-06-17 14:29 | XRAY ---
Indication: Double vision. Conventional contrast enhanced MRA neck was performed. 10 cc Dotarem contrast used. Comparison: None Visualized aortic arch demonstrates anatomic variant of bovine arch. Left and right common carotid, carotid bulb, and visualized internal/external carotid arteries are normal in course and caliber. No focal stricture, obstruction, or AV malformation. Vertebral arteries are also bilaterally symmetric without focal abnormality. Base of the right neck demonstrates a mass measuring 2.7 x 3.3 x 4.6 cm in the greatest AP, transverse, and CC planes respectively. Impression: 1. Right neck mass as detailed originally seen on CT head one day earlier. CT neck with contrast exam may yield further information. 2. Remaining MRA neck with contrast exam is negative.
[2019-06-18] MEDS: Sodium Chloride 0.9% 1000 ML 1,000 ML IV SCH ×2 (02:14→12:17)
[2019-06-18 05:17] LABS: Angiotensin Converting Enzyme 4 U/L (8-52)
[2019-06-18 07:14] LABS: T3, FREE 2.23 pg/mL (2.00-4.00)
[2019-06-18 10:30] LABS: RPR Screen Reactive (Non Reactive)
[2019-06-18] MEDS: ECOTRIN 81 MG PO SCH (10:35)
[2019-06-18] MEDS: THERAGRAN MULTIVITAMIN PO SCH (10:35)
[2019-06-18] MEDS: Flagyl 500 MG PO SCH (10:36)
[2019-06-18] MEDS: BACTRIM DS TABLET PO SCH (10:36)
[2019-06-18] MEDS: SYNTHROID 25 MCG PO SCH (10:36)
--- NOTE | 2019-06-18 11:57 | PCM.DS ---
Discharge Summary Date of Admission: 06/16/19 09:22 Date of Discharge: 06/18/2019 Admitting Physician: MING PARNELL Consults: Consults on Case 06/16/19 08:16 Consult Tele-Health [Tele-Health Consult] ROUTINE 06/16/19 09:15 Consult Neurology ROUTINE 06/17/19 15:14 Consult Neurology ROUTINE Primary Care Provider: MING PARNELL Allergies Allergies No Known Drug Allergies Allergy (Verified 06/16/19 06:16) Hospital Summary - Hospital Course Hospital Course: Pt. admitted after awakening with double vision Monday, doing well and symptoms resolved, pt. MRI showed multiple small infarcts, ECHO ordered and Neurology consulted. Pt. anxious to go home today. - Vitals & Intake/Output Vital Signs: Vital Signs Temperature 98.7 F 06/18/19 08:00 Pulse Rate 64 06/18/19 08:00 Respiratory Rate 16 06/18/19 08:00 Blood Pressure 191/81 06/18/19 08:00 O2 Sat by Pulse Oximetry 93 L 06/18/19 08:00 Intake & Output: Intake & Output 06/15/19 06/16/19 06/17/19 06/18/19 11:59 11:59 11:59 11:59 Intake Total 2041 2256 Output Total 2101 2450 Balance -66 -194 Weight 50 kg - Lab Result Diagrams: 06/16/19 06:37 06/16/19 06:37 Lab Results-Last 24 Hrs: Lab Results-Last 24 Hours 06/16/19 06/17/19 Range/Units 09:51 09:25 Angiotensin Convert Enz 4 L (8-52) U/L Whole Bld Vitamin B1 Pending Homocystine 9.5 (0.0-12.0) mcmol/L T3 (ELIEZER) 94 (80-200) ng/dL Free T3 Index 2.23 (2.00-4.00) pg/mL BRANDON IgG Screen Pending Syphilis Ab Confirm 0.3 (0.0-0.8) AI RPR w/Rflx to Titer Reactive H (Non Reactive) Syphilis Interpret Non Reactive (Non Reactive) Micro Results-Entire Visit: Microbiology 06/16/19 08:47 Urine Culture - Final Clean Catch Midstream Proteus Mirabilis - Radiology Exams Ordered Rad Exams-Entire Visit: Radiology Procedures Category Date Time Status ECHO W/2D AND DOPPLER [US] Urgent Exams 06/17/19 09:20 Taken MRA BRAIN WITHOUT CONTRAST [MRI] Urgent Exams 06/17/19 08:55 Completed MRA NECK WITH CONTRAST [MRI] Urgent Exams 06/17/19 08:55 Completed MRI BRAIN W & W/O CONTRAST [MRI] Urgent Exams 06/17/19 08:44 Completed - Procedures and Test Procedures and Tests throughout Hospitalization: Therapy Orders & Screens 06/16/19 10:36 Smoking Cessation Education ONCE Comment: Diagnosis: cva Smoking Status: Current every day smoker How long have you smoked: 61 yrs Have you smoked in the past 12 months: Yes Approximately how many cigarettes per day: 1 pk Do you dip or chew tobacco: No 06/17/19 09:19 OT Eval and Treat (MD Order) ROUTINE Comment: Consulting Provider: Physician Instructions: Reason For Exam: CVA Evaluate: Yes Treat: Yes Reason for Evaluation: CVA Diagnosis: cva PT Eval & Treat (MD Order) ROUTINE Reason for Eval:: CVA Diagnosis: cva Discharge Exam General Appearance: no apparent distress, alert Neurologic Exam: alert, oriented x 3, cooperative, normal mood/affect, nml cerebellar function, sensation nml, No motor deficits Eye Exam: PERRL, EOMI, eyes nml inspection Ears, Nose, Throat Exam: normal ENT inspection, pharynx normal, moist mucous membranes Neck Exam: normal inspection, non-tender, supple, full range of motion Respiratory Exam: normal breath sounds, lungs clear, No respiratory distress Cardiovascular Exam: regular rate/rhythm, murmur Gastrointestinal/Abdomen Exam: soft, No tenderness, No mass Extremity Exam: normal inspection, normal range of motion Final Diagnosis/Problem List - Final Discharge Diagnosis/Problem (1) CVA (cerebral vascular accident) Current Visit: Yes Status: Acute Assessment & Plan: Aspirin and plavix OP therapy Code(s): I63.9 - CEREBRAL INFARCTION, UNSPECIFIED (2) Diplopia Current Visit: Yes Status: Acute Assessment & Plan: resolved Code(s): H53.2 - DIPLOPIA (3) Nystagmus Current Visit: Yes Status: Acute Assessment & Plan: resolved Code(s): H55.00 - UNSPECIFIED NYSTAGMUS (4) Systolic murmur Current Visit: Yes Status: Acute Assessment & Plan: ECHO performed will follow-up recommendations Code(s): R01.1 - CARDIAC MURMUR, UNSPECIFIED (5) UTI (urinary tract infection) Current Visit: Yes Status: Acute Assessment & Plan: OP Bactrim DS Code(s): N39.0 - URINARY TRACT INFECTION, SITE NOT SPECIFIED - Discharge Discharge Date: 06/18/19 Disposition: Home, Self-Care Condition: Fair Prescriptions: New Smz/Tmp Ds Tablet [Bactrim Ds Tablet] 1 tab PO BID #20 tablet Clopidogrel Bisulfate 75 mg [PLAVIX 75 MG Tablet] 75 mg PO DAILY #30 tablet Levothyroxine Sodium 25 Mcg [Synthroid 25 Mcg] 25 mcg PO QAM #30 tablet Metoprolol Succinate 25 mg Xl* [Toprol-Xl 25MG Tablets] 25 mg PO DAILY # 30 tab No Action Multivitamin [Daily Multivitamin] 1 each PO DAILY Aspirin EC 81 mg [Ecotrin 81 mg] 81 mg PO DAILY Follow up with: YANELY KNOWLES MD [CONSULTING PHYSICIAN] -
[2019-06-18 12:49] VITALS: BP 165/103; PULSE 63; O2SAT 95
[2019-06-18] MEDS ORDERED: Catapres 0.1 MG PO ONE (13:10)
--- NOTE | 2019-06-18 14:56 | ECHO ---
Transthoracic echocardiographic examination and color Doppler was done on 06/17/2019. INDICATION: Stroke, history of hypertension. IMPRESSION: 1) NO REGIONAL WALL MOTION ABNORMALITY. ESTIMATED GLOBAL LEFT VENTRICULAR EJECTION FRACTION BETWEEN 60 AND 70%. 2) MILD AORTIC VALVE STENOSIS. TRANSAORTIC GRADIENT 37 MM OF MERCURY. 3) MILD MITRAL STENOSIS. 4) TRACE MITRAL REGURGITATION. 5) MILD TRICUSPID REGURGITATION. RIGHT VENTRICULAR SYSTOLIC PRESSURE OF 42 MM OF MERCURY. 6) MILD PULMONARY INSUFFICIENCY. 7) CALCIFIED AORTIC ROOT WITH AORTIC PLAQUE. 8) LEFT VENTRICULAR DIASTOLIC DYSFUNCTION. 9) TRACE PERICARDIAL EFFUSION. 10) MODERATE LEFT VENTRICULAR HYPERTROPHY The left ventricle is visualized and demonstrated adequate motion of all the segments. Estimated global left ventricular ejection fraction between 60 and 70%. There is concentric moderate left ventricular hypertrophy with prominent basal septum. The mitral valve is heavily calcified. There is some degree of mild mitral stenosis. There is also trace mitral regurgitation. Left atrium is still normal. The aortic valve is heavily calcified. The peak gradient across the aortic valve is 37 mm of Mercury. The aortic root is within normal but is calcified. There is also some aortic plaque. The right side chambers are normal. There is mild tricuspid regurgitation. The right ventricular systolic pressure of 42 mm of Mercury. Tissue Doppler study of the lateral mitral annulus suggestive of left ventricular diastolic dysfunction. There is also mild pulmonic insufficiency. Trace pericardial effusion.
[2019-06-19 15:02] LABS: ANA Pattern Interp Detail See Result Note:
== END 2019-06-18 14:45 | disposition home or self-care (01) | DRG 65 ==
LOC: ED 06:02 → OBSVTOIN 09:22 → MED SURG 09:22
PROVIDERS: ADMIT Family Medicine; ATTEND Family Medicine
DX: I63.9 Cerebral infarction, unspecified (principal); N39.0 Urinary tract infection, site not specified; H53.2 Diplopia; H55.00 Unspecified nystagmus; R01.1 Cardiac murmur, unspecified; A59.01 Trichomonal vulvovaginitis; E03.9 Hypothyroidism, unspecified; F17.200 Nicotine dependence, unspecified, uncomplicated; Z79.01 Long term (current) use of anticoagulants; Z79.899 Other long term (current) drug therapy
CPT/HCPCS: 0064U; 36415; 70450; 70544; 70548; 70553; 71046; 80053; 81001; 82164; 82607; 83036; 83090; 84425; 84436; 84443; 84480; 84481; 85025; 85610; 85652; 86038; 86039; 86592; 86593; 87077; 87086; 87186; 93005; 93041; 93270; 93306; 96360; 96361; 97161; 97165; 99285; 99291; Q3014; A9270-GY

== ENCOUNTER 2020-06-19 10:55 | Inpatient (IN) | payer MEDICARE, OTHER ==
[2020-06-19] MEDS ORDERED: Sodium Chloride 0.9% 1000 ML 1,000 ML IV STA (11:32)
[2020-06-19] MEDS ORDERED: Sodium Chloride 0.9% 1000 ML 1,000 ML ONE (11:42)
--- NOTE | 2020-06-19 11:47 | ERPHSYRPT ---
- History of Present Illness Time Seen by Provider: 06/19/20 11:14 Historian: patient Exam Limitations: no limitations Patient Subjective Stated Complaint: vomiting Triage Nursing Assessment: Patient brought back to ED via w/c and transferred to bed per self. Patient A+O X 3. Patient's skin pink, warm and dry. Patient complains of vomiting X 1 this am. Patient complains of abdominal pain for the past five days. Patient also stated she has not had a bowel movement in 5 days. Patient's abdomen round and distended with hypoactive bowel sounds. Physician History: 85 y years old female presented in the ER with chief complaint of generalized abdominal pain and one episode of vomiting this morning. Patient reports she is having gradually increasing abdominal distention/tightness with intermittent dull aching to sharp pain with cramping without any known significant aggravating or relieving factors. Denies any diarrhea but has not have any bowel movement for the last 5 days. Denies fever or chills. No sick contact. Timing/Duration: day(s) (5), intermittent, resolved prior to arrival, gradual onset Activities at Onset: rest Quality: cramping, dullness, sharpness Abdominal Pain Onset Location: generalized abdomen Pain Radiation: no radiation Severity of Pain-Max: moderate Severity of Pain-Current: mild Modifying Factors: Improves With: nothing Associated Symptoms: nausea, vomiting Previous symptoms: no prior history Allergies/Adverse Reactions: No Known Drug Allergies Allergy (Verified 06/16/19 06:16) Home Medications: Multivitamin [Daily Multivitamin] 1 each PO DAILY 03/21/19 [History] Aspirin EC 81 mg [Ecotrin 81 mg] 81 mg PO DAILY 03/26/19 [History] Hx Tetanus, Diphtheria Vaccination/Date Given: No Hx Influenza Vaccination/Date Given: No Hx Pneumococcal Vaccination/Date Given: No Immunizations Up to Date: Yes Travel Risk - International Travel Have you traveled outside of the country in past 3 weeks: No - Coronavirus Screening Are you exhibiting any of the following symptoms?: No Close contact with a COVID-19 positive Pt in past 14-21 Days: No - Review of Systems Constitutional: No Symptoms Eyes: No Symptoms Ears, Nose, & Throat: No Symptoms Respiratory: No Symptoms Cardiac: No Symptoms Abdominal/Gastrointestinal: Abdominal Pain, Nausea, Vomiting, Constipation Genitourinary Symptoms: No Symptoms Musculoskeletal: No Symptoms Skin: No Symptoms Neurological: No Symptoms Psychological: No Symptoms Endocrine: No Symptoms Hematologic/Lymphatic: No Symptoms Immunological/Allergic: No Symptoms - Past Medical History Pertinent Past Medical History: Yes Neurological History: No Pertinent History ENT History: Cataracts Cardiac History: No Pertinent History Respiratory History: No Pertinent History Endocrine Medical History: No Pertinent History Musculoskeletal History: No Pertinent History GI Medical History: No Pertinent History History: No Pertinent History Psycho-Social History: No Pertinent History Female Reproductive Disorders: No Pertinent History, Other - Past Surgical History Past Surgical History: Yes Neuro Surgical History: No Pertinent History Cardiac: No Pertinent History Respiratory: No Pertinent History Gastrointestinal: No Pertinent History Genitourinary: No Pertinent History Musculoskeletal: No Pertinent History Female Surgical History: No Pertinent History - Social History Smoking Status: Former smoker How long have you smoked: 61 yrs Exposure to second hand smoke: Yes Drug Use: none Patient Lives Alone: Yes - Female History Hx Now: No - Nursing Vital Signs Nursing Vital Signs: Initial Vital Signs Temperature 97.9 F 06/19/20 11:09 Pulse Rate 83 06/19/20 11:09 Respiratory Rate 18 06/19/20 11:09 Blood Pressure 165/79 06/19/20 11:09 O2 Sat by Pulse Oximetry 97 06/19/20 11:09 Pain Scale Pain Intensity 5 - Physical Exam General Appearance: no apparent distress Eye Exam: eyes nml inspection Ears, Nose, Throat Exam: normal ENT inspection Neck Exam: normal inspection, supple, full range of motion Respiratory Exam: normal breath sounds, lungs clear Cardiovascular Exam: regular rate/rhythm, normal heart sounds Gastrointestinal/Abdomen Exam: tenderness (Mild generalized), distention, other (Hypoactive bowel sounds) Back Exam: normal inspection, normal range of motion Extremity Exam: normal inspection Neurologic Exam: alert, oriented x 3, cooperative Skin Exam: normal color SpO2 Interpretation: normal SpO2: 97 O2 Delivery: Room Air - Course Nursing assessment & vital signs reviewed: Yes Ordered Tests: Active Orders 24 hr Category Date Time Status IV Insertion STAT Care 06/19/20 11:32 Active NGT [Gastric Tube Insertion] STAT Care 06/19/20 14:15 Active NPO (ED) STAT Care 06/19/20 11:32 Active ABDOMEN AND PELVIS W CONTRAST [CT] Stat Exams 06/19/20 11:32 Completed CHEST 1 VIEW (PORTABLE) Stat Exams 06/19/20 14:51 Taken CBC W DIFF Stat Lab 06/19/20 11:32 Completed CMP Stat Lab 06/19/20 11:15 Completed LIPASE Stat Lab 06/19/20 11:15 Completed TROPONIN Q3H Lab 06/19/20 11:15 Completed TROPONIN Q3H Lab 06/19/20 14:35 Received TROPONIN Q3H Lab 06/19/20 17:45 Ordered TROPONIN Q3H Lab 06/19/20 20:45 Ordered TROPONIN Q3H Lab 06/19/20 23:45 Ordered UA W/RFX UR CULTURE Stat Lab 06/19/20 11:40 Completed Transfer Order Routine Transfer 06/19/20 Ordered Medication Summary Discontinued Medications Generic Name Dose Route Start Last Admin Trade Name Freq PRN Reason Stop Dose Admin Sodium Chloride 1,000 mls @ 499 mls/hr 06/19/20 11:32 06/19/20 14:10 Sodium Chloride 0.9% 1000 Ml IV 06/19/20 13:32 Infused .Q2H1M STA Infusion Sodium Chloride Confirm 06/19/20 11:42 Sodium Chloride 0.9% 1000 Ml Administered 06/19/20 11:43 Dose 1,000 mls @ ud .ROUTE .STK-MED ONE Lorazepam 1 mg 06/19/20 14:31 06/19/20 14:34 Ativan 2 Mg/1 Ml Vial IV 06/19/20 14:32 1 mg STAT ONE Administration Lorazepam Confirm 06/19/20 14:33 Ativan 2 Mg/1 Ml Vial Administered 06/19/20 14:34 Dose 2 mg .ROUTE .STK-MED ONE Morphine Sulfate 4 mg 06/19/20 14:31 06/19/20 14:34 Morphine Sulfate 4 Mg Inj IV 06/19/20 14:32 4 mg STAT ONE Administration Morphine Sulfate Confirm 06/19/20 14:33 Morphine Sulfate 4 Mg Inj Administered 06/19/20 14:34 Dose 4 mg .ROUTE .STK-MED ONE Ondansetron HCl 4 mg 06/19/20 14:31 06/19/20 14:34 Zofran 4 Mg/2 Ml Vial IV 06/19/20 14:32 4 mg STAT ONE Administration Ondansetron HCl Confirm 06/19/20 14:33 Zofran 4 Mg/2 Ml Vial Administered 06/19/20 14:34 Dose 4 mg .ROUTE .STK-MED ONE Lab/Rad Data: Laboratory Result Diagrams 06/19/20 11:32 06/19/20 11:15 Laboratory Results 06/19/20 06/19/20 06/19/20 Range/Units 11:40 11:32 11:15 WBC 10.5 (4.0-10.5) K/mm3 RBC 3.47 L (4.1-5.4) M/mm3 Hgb 10.9 L (12.0-16.0) gm/dl Hct 33.8 L (35-47) % MCV 97.4 (78-100) fl MCH 31.4 (26-32) pg MCHC 32.2 (32-36) g/dl RDW 14.5 H (11.5-14.0) % Plt Count 410 (150-450) K/mm3 MPV 9.6 (7.5-11.0) fl Gran % 82.1 H (36.0-66.0) % Eos # (Auto) 0.02 (0-0.5) Absolute Lymphs (auto) 1.29 (1.0-4.6) Absolute Monos (auto) 0.54 (0.0-1.3) Lymphocytes % 12.3 L (24.0-44.0) % Monocytes % 5.1 (0.0-12.0) % Eosinophils % 0.2 (0.00-5.0) % Basophils % 0.3 (0.0-0.4) % Absolute Granulocytes 8.65 H (1.4-6.9) Basophils # 0.03 (0-0.4) Sodium (137-145) mmol/L Potassium (3.5-5.1) mmol/L Chloride (98-107) mmol/L Carbon Dioxide (22-30) mmol/L Anion Gap (5-15) MEQ/L BUN (7-17) mg/dL Creatinine (0.52-1.04) mg/dL Estimated GFR ML/MIN Glucose (74-106) mg/dL Calcium (8.4-10.2) mg/dL Total Bilirubin (0.2-1.3) mg/dL AST (14-36) U/L ALT (0-35) U/L Alkaline Phosphatase (38-126) U/L Troponin I 0.016 (0.000-0.034) ng/mL Serum Total Protein (6.3-8.2) g/dL Albumin (3.5-5.0) g/dL Lipase (23-300) U/L Urine Color ELDA (YELLOW) Urine Appearance SLIGHTLY CLOUDY (CLEAR) Urine pH 5.0 (5-6) Ur Specific [place] 1.021 (1.005-1.025) Urine Protein NEGATIVE (Negative) Urine Ketones TRACE (NEGATIVE) Urine Blood NEGATIVE (0-5) Chong/ul Urine Nitrite NEGATIVE (NEGATIVE) Urine Bilirubin SMALL (NEGATIVE) Urine Urobilinogen 4 (0-1) mg/dL Ur Leukocyte Esterase NEGATIVE (NEGATIVE) Urine WBC (Auto) 3-5 (0-5) /HPF Urine RBC (Auto) 3-5 (0-2) /HPF U Hyaline Cast (Auto) 11-25 (0-2) /LPF U Epithel Cells (Auto) RARE (FEW) /HPF Urine Bacteria (Auto) NONE SEEN (NEGATIVE) /HPF Granular Casts (Auto) 25-50 (NEGATIVE) /LPF Urine Mucus (Auto) SLIGHT (NEGATIVE) /HPF Urine Culture Reflexed NO (NO) Urine Glucose NEGATIVE (NEGATIVE) mg/dL 06/19/20 Range/Units 11:15 WBC (4.0-10.5) K/mm3 RBC (4.1-5.4) M/mm3 Hgb (12.0-16.0) gm/dl Hct (35-47) % MCV (78-100) fl MCH (26-32) pg MCHC (32-36) g/dl RDW (11.5-14.0) % Plt Count (150-450) K/mm3 MPV (7.5-11.0) fl Gran % (36.0-66.0) % Eos # (Auto) (0-0.5) Absolute Lymphs (auto) (1.0-4.6) Absolute Monos (auto) (0.0-1.3) Lymphocytes % (24.0-44.0) % Monocytes % (0.0-12.0) % Eosinophils % (0.00-5.0) % Basophils % (0.0-0.4) % Absolute Granulocytes (1.4-6.9) Basophils # (0-0.4) Sodium 137 (137-145) mmol/L Potassium 4.5 (3.5-5.1) mmol/L Chloride 107 (98-107) mmol/L Carbon Dioxide 22 (22-30) mmol/L Anion Gap 12.6 (5-15) MEQ/L BUN 24 H (7-17) mg/dL Creatinine 1.04 (0.52-1.04) mg/dL Estimated GFR 53.7 ML/MIN Glucose 134 H (74-106) mg/dL Calcium 9.2 (8.4-10.2) mg/dL Total Bilirubin 0.60 (0.2-1.3) mg/dL AST 43 H (14-36) U/L ALT 19 (0-35) U/L Alkaline Phosphatase 78 (38-126) U/L Troponin I (0.000-0.034) ng/mL Serum Total Protein 6.5 (6.3-8.2) g/dL Albumin 3.8 (3.5-5.0) g/dL Lipase 28 (23-300) U/L Urine Color (YELLOW) Urine Appearance (CLEAR) Urine pH (5-6) Ur Specific [place] (1.005-1.025) Urine Protein (Negative) Urine Ketones (NEGATIVE) Urine Blood (0-5) Chong/ul Urine Nitrite (NEGATIVE) Urine Bilirubin (NEGATIVE) Urine Urobilinogen (0-1) mg/dL Ur Leukocyte Esterase (NEGATIVE) Urine WBC (Auto) (0-5) /HPF Urine RBC (Auto) (0-2) /HPF U Hyaline Cast (Auto) (0-2) /LPF U Epithel Cells (Auto) (FEW) /HPF Urine Bacteria (Auto) (NEGATIVE) /HPF Granular Casts (Auto) (NEGATIVE) /LPF Urine Mucus (Auto) (NEGATIVE) /HPF Urine Culture Reflexed (NO) Urine Glucose (NEGATIVE) mg/dL - Progress Progress: unchanged, re-examined Progress Note: 06/19/20 14:12 35 years old is evaluated for abdominal pain with vomiting and constipation. She is given fluid bolus, offered pain medication which he refused. Work-up showed normal white count, grossly unremarkable chemistries except that she has CKD. I have obtained CT abdomen pelvis with contrast which showed caked omentum suggesting metastasis with ascites and pelvic mass with extension into large cut causing colonic obstruction and fecal stasis. Also has lesion in the right adrenal and sacral bone which are probably mets. Patient discussed with Dr. Christina Cummings, recommended NG intubation, bowel rest, IV fluids and admission to medical services and will see patient in consultation with medicine. I have discussed with Dr. Parnell and patient is accepted for admission. I have discussed work-up and finding with patient and her son in detail which do seem understanding and agreeable with admission. Discussed with .: [place], Other (Dr. Christina Cummings) Counseled pt/family regarding: lab results, diagnosis, rad results - Departure Departure Disposition: In-patient Admission Clinical Impression: Colonic obstruction, Pelvic mass in female Ascites Qualifiers: Ascites type: other type Qualified Code(s): R18.8 - Other ascites Condition: Stable Critical Care Time: No Referrals: MING PARNELL [Primary Care Provider] -
[2020-06-19 11:53] LABS: Absolute Neutrophil Ct (ANC) 8.65 (1.4-6.9); BASOPHIL % 0.3 % (0.0-0.4); Basophil (Absolute #) 0.03 (0-0.4); Eosinophil % 0.2 % (0.00-5.0); Eosinophil (Absolute #) 0.02 (0-0.5); Hematocrit 33.8 % (35-47); Hemoglobin 10.9 gm/dl (12.0-16.0); Lymphocyte (Absolute #) 1.29 (1.0-4.6); Lymphocytes % 12.3 % (24.0-44.0); Mean Cell Volume 97.4 fl (78-100); Mean Corpuscular Hemoglobin 31.4 pg (26-32); Mean Corpuscular Hgb Concent. 32.2 g/dl (32-36); Mean Platelet Volume 9.6 fl (7.5-11.0); Monocyte (Absolute #) 0.54 (0.0-1.3); Monocytes % 5.1 % (0.0-12.0); Neutrophil % 82.1 % (36.0-66.0); Platelet Count 410 K/mm3 (150-450); Red Blood Count 3.47 M/mm3 (4.1-5.4); Red Cell Distribution Width 14.5 % (11.5-14.0); White Blood Count 10.5 K/mm3 (4.0-10.5)
[2020-06-19 12:01] LABS: Appearance SLIGHTLY CLOUDY (CLEAR); Bilirubin SMALL (NEGATIVE); Blood NEGATIVE Ery/ul (0-5); Epithelial Cells RARE /HPF (FEW); Glucose NEGATIVE (NEGATIVE); Ketones TRACE (NEGATIVE); Leukocyte Esterase NEGATIVE (NEGATIVE); Mucus SLIGHT /HPF (NEGATIVE); Nitrite NEGATIVE (NEGATIVE); Protein,Urine Dip NEGATIVE (Negative); Specific Gravity 1.021 (1.005-1.025); Urobilinogen 4 mg/dL (0-1)
[2020-06-19 12:01] LABS: ALBUMIN 3.8 g/dL (3.5-5.0); ANION GAP 12.6 MEQ/L (5-15); BILIRUBIN,TOTAL 0.6 mg/dL (0.2-1.3); Calcium 9.2 mg/dL (8.4-10.2); Creatinine 1 1.04 mg/dL (0.52-1.04); EST GLOMERULAR FILTRATION RATE 53.7 ML/MIN; Potassium 4.5 mmol/L (3.5-5.1); Total Protein 6.5 g/dL (6.3-8.2)
[2020-06-19 12:03] LABS: Granular Casts 25-50 /LPF (NEGATIVE)
[2020-06-19 12:04] LABS: Bacteria NONE SEEN /HPF (NEGATIVE)
--- NOTE | 2020-06-19 13:27 | XRAY ---
Indication: Bloating and constipation for over a week. Abdomen pain and vomiting. Multiple contiguous axial images obtained through the abdomen and pelvis using 80 cc Isovue 370 contrast only. Comparison: None Lung bases demonstrates tiny left effusion. No infiltrate or effusion. Heart is not enlarged with scattered coronary calcifications and mitral valve calcifications. Small hiatal hernia. There are several scattered mesenteric soft tissue masses throughout the abdomen worrisome for omental caking/metastasis. Largest mass measures 4.2 x 10.4 x 11.5 cm at the level of the umbilicus. Pelvis also demonstrates a very large heterogeneous enhancing mass in the expected region of the uterus measuring at least 13.3 x 11.4 x 13.9 cm. Pelvis demonstrates multiple pockets of hypodense/fluid attenuations possibly tissue necrosis. Pelvic mass effaces a moderately distended urinary bladder. Sigmoid colon and rectum demonstrates similar appearance/attenuation concerning for tumor extension. Subsequent colonic obstruction with abnormal diffuse fecal distended colon up to 5.5 cm in diameter. Left kidney is moderately hydronephrotic along with left ureteral distention up to 1.2 cm and no excretion on delayed imaging favoring high-grade distal obstruction most likely due to the pelvic mass. Moderate abdominal/pelvic ascites presumed malignant. No free air. Indeterminant 2.5 x 2.8 cm right adrenal gland mass. A few bilateral renal cysts. Left upper pole demonstrates a 2 cm well-circumscribed exophytic mass, not simple cyst in attenuation but possibly hemorrhagic/viscus. Remaining liver, gallbladder, pancreas, spleen, and adrenal glands are unremarkable. Extensive scattered arteriosclerotic calcifications with ectatic abdominal aorta. Centimeters/subcentimeter periaortic lymph nodes, none pathologically enlarged. Osseous structures demonstrates osteopenia, mild/moderate degenerative changes throughout the thoracolumbar spine, and healing minimally displaced right pubic symphysis fracture. Sacrum demonstrates patchy sclerosis worrisome for osteoblastic metastasis. Impression: 1. Diffuse abdominal omental caking worrisome for metastasis. Also large abdominal/pelvic ascites presumed malignant. 2. Very large heterogeneous pelvic mass in the expected region of the uterus as detailed. Suspect tumor extension to involve the sigmoid colon and rectum extension with subsequent diffuse fecal stasis due to colonic obstruction. Also mass effect on adjacent distended urinary bladder and subsequent distal left ureter obstruction. 3. Indeterminant right adrenal gland mass. Rule out metastasis given above findings. 4. Patchy sclerosis involving the sacrum worrisome for osteoblastic metastasis. 5. Bilateral renal cysts. Left upper pole exophytic cyst appears slightly dense, possible hemorrhagic/viscus cyst. 6. Incidental small hiatal hernia, diffuse extensive arteriosclerotic disease, osteopenia, degenerative spondylosis, and healing right pubis symphysis fracture.
[2020-06-19] MEDS ORDERED: Ativan 2 MG/1 ML VIAL IV ONE (14:31)
[2020-06-19] MEDS ORDERED: MORPHINE SULFATE 4 MG INJ IV ONE (14:31)
[2020-06-19] MEDS ORDERED: Zofran 4 MG/2 ML VIAL IV ONE (14:31)
[2020-06-19] MEDS ORDERED: Ativan 2 MG/1 ML VIAL ONE (14:33)
[2020-06-19] MEDS ORDERED: MORPHINE SULFATE 4 MG INJ ONE (14:33)
[2020-06-19] MEDS ORDERED: Zofran 4 MG/2 ML VIAL ONE (14:33)
[2020-06-19] MEDS ORDERED: DUONEB 0.5-3 MG/3 ml Neb IH PRN (15:31)
[2020-06-19] MEDS ORDERED: HUMALOG SQ PRN (15:31)
[2020-06-19] MEDS ORDERED: Zofran 4 MG/2 ML VIAL IV PRN (15:31)
--- NOTE | 2020-06-19 15:43 | XRAY ---
Indication: NG tube placement. Comparison: June 16, 2019. Portable chest demonstrates new NG tube tip distal esophagus just proximal to GE junction. Lungs less inflated with minimal bibasilar subsegmental atelectasis/scarring. Heart is not enlarged again with tortuous descending aorta. Bony thorax intact again with osteopenia and degenerative changes.
[2020-06-19] MEDS: Sodium Chloride 0.9% 1000 ML 1,000 ML IV SCH (17:17)
[2020-06-20] MEDS: MORPHINE SULFATE 2 MG INJ IV PRN ×2 (02:00→09:42)
[2020-06-20] MEDS: Sodium Chloride 0.9% 1000 ML 1,000 ML IV SCH (02:19)
[2020-06-20 05:42] LABS: Absolute Neutrophil Ct (ANC) 7.43 (1.4-6.9); BASOPHIL % 0.4 % (0.0-0.4); Basophil (Absolute #) 0.04 (0-0.4); Eosinophil % 0.4 % (0.00-5.0); Eosinophil (Absolute #) 0.04 (0-0.5); Hemoglobin 10.6 gm/dl (12.0-16.0); Lymphocyte (Absolute #) 1.46 (1.0-4.6); Lymphocytes % 15.2 % (24.0-44.0); Mean Cell Volume 99.1 fl (78-100); Mean Corpuscular Hemoglobin 31.8 pg (26-32); Mean Corpuscular Hgb Concent. 32.1 g/dl (32-36); Mean Platelet Volume 9.4 fl (7.5-11.0); Monocyte (Absolute #) 0.63 (0.0-1.3); Monocytes % 6.6 % (0.0-12.0); Neutrophil % 77.4 % (36.0-66.0); Platelet Count 373 K/mm3 (150-450); Red Blood Count 3.33 M/mm3 (4.1-5.4); Red Cell Distribution Width 14.6 % (11.5-14.0); White Blood Count 9.6 K/mm3 (4.0-10.5)
[2020-06-20 06:07] LABS: ALKALINE PHOSPHATASE 61 U/L (38-126); BLOOD UREA NITROGEN 20 mg/dL (7-17); CHLORIDE 112 mmol/L (98-107); Calcium 8.5 mg/dL (8.4-10.2); Carbon Dioxide 20 mmol/L (22-30); Creatinine 1 0.85 mg/dL (0.52-1.04); EST GLOMERULAR FILTRATION RATE > 60.0 ML/MIN; Glucose 103 mg/dL (74-106); Potassium 4.1 mmol/L (3.5-5.1); SGOT/AST 35 U/L (14-36); SGPT/ALT 14 U/L (0-35); SODIUM 137 mmol/L (137-145); Total Protein 5.4 g/dL (6.3-8.2)
[2020-06-20] MEDS ORDERED: Toprol-Xl 25MG Tablets PO SCH (10:00)
[2020-06-20] MEDS ORDERED: SYNTHROID 25 MCG PO SCH (10:00)
[2020-06-20] MEDS ORDERED: THERAGRAN MULTIVITAMIN PO SCH (10:00)
[2020-06-20] MEDS ORDERED: NON-FORMULARY ITEM (Multivitamin [Daily Multivitamin] 1 EACH) PO SCH (10:00)
[2020-06-20] MEDS ORDERED: PLAVIX 75 MG Tablet PO SCH (10:00)
--- NOTE | 2020-06-20 10:42 | PCM.HP ---
History of Present Illness - Chief Complaint Chief Complaint: colonic obstruction, pelvic mass Date: 06/20/20 History of Present Illness: is a 85 year old female. Presented to ER with no bm for several days and increasing abdominal distension, pt. notes she has vomited once. Pt. notes diffuse abdominal pain as well. - Review of Systems Constitutional: No Symptoms Eyes: No Symptoms Ears, Nose, & Throat: No Symptoms Respiratory: No Symptoms Cardiac: No Symptoms Abdominal/Gastrointestinal: Abdominal Pain, Constipation Genitourinary Symptoms: Frequency, Hesitancy Musculoskeletal: No Symptoms Skin: No Symptoms Neurological: No Symptoms Psychological: No Symptoms Endocrine: No Symptoms Hematologic/Lymphatic: No Symptoms Immunological/Allergic: No Symptoms Medications & Allergies Home Medications: Home Medication List Multivitamin [Daily Multivitamin] 1 each PO DAILY 03/21/19 [History Confirmed 06/19/20] Clopidogrel Bisulfate 75 mg [PLAVIX 75 MG Tablet] 75 mg PO DAILY #30 tablet 06/18/19 [Rx Confirmed 06/19/20] Levothyroxine Sodium 25 Mcg [Synthroid 25 Mcg] 25 mcg PO QAM #30 tablet 06/18/19 [Rx Confirmed 06/19/20] Metoprolol Succinate 25 mg Xl* [Toprol-Xl 25MG Tablets] 25 mg PO DAILY #30 tab 06/18/19 [Rx Confirmed 06/19/20] Allergies/Adverse Reactions: Allergies Allergy/AdvReac Type Severity Reaction Status Date / Time No Known Drug Allergies Allergy Verified 06/16/19 06:16 - Past Medical History Past Medical History: Yes Neurological History: No Pertinent History ENT History: Cataracts Cardiac History: No Pertinent History CARDIAC HISTORY: Other (heart murmur) Respiratory History: No Pertinent History Endocrine Medical History: No Pertinent History Musculoskelatal History: No Pertinent History GI Medical History: No Pertinent History History: No Pertinent History Pyscho-Social History: No Pertinent History Reproductive Disorders: No Pertinent History - Female History Are you now?: No - Past Surgical History Past Surgical History: Yes Neuro Surgical History: No Pertinent History Cardiac History: No Pertinent History Respiratory Surgery: No Pertinent History GI Surgical History: No Pertinent History Genitourinary Surgical Hx: No Pertinent History Musculskeletal Surgical Hx: No Pertinent History Female Surgical History: No Pertinent History - Social History Smoking Status: Former smoker How long have you smoked: 61 yrs Exposure to second hand smoke: No Alcohol: Occasionally Drug Use: none - Physical Exam Vital Signs: Vital Signs - 24 hr Temp Pulse Resp BP Pulse Ox 06/20/20 07:25 99.0 F 83 18 146/75 94 L 06/20/20 07:15 84 16 91 L 06/20/20 04:00 98.1 F 78 18 125/60 92 L 06/20/20 00:00 98.5 F 83 18 133/63 94 L 06/19/20 20:00 97.9 F 85 19 179/75 95 06/19/20 19:42 93 L 06/19/20 19:40 76 18 93 L 06/19/20 17:34 176/78 06/19/20 16:24 73 16 93 L 06/19/20 16:06 97.2 F 80 18 185/78 97 06/19/20 15:45 97.2 F 80 18 185/78 97 06/19/20 15:22 97 06/19/20 14:13 97.9 F 84 20 188/88 98 06/19/20 13:11 80 16 167/89 97 06/19/20 12:02 78 16 134/51 96 06/19/20 11:09 97.9 F 83 18 165/79 97 General Appearance: no apparent distress Neurologic Exam: alert, cooperative Eye Exam: eyes nml inspection Ears, Nose, Throat Exam: normal ENT inspection Neck Exam: normal inspection Respiratory Exam: normal breath sounds Cardiovascular Exam: regular rate/rhythm, murmur Gastrointestinal/Abdomen Exam: tenderness, distention, No guarding Pelvic Exam: not done Rectal Exam: deferred Back Exam: normal inspection Extremity Exam: normal inspection Results - Labs Lab/Micro Results: Lab Results-Last 24 Hours 06/19/20 06/19/20 06/19/20 Range/Units 11:15 11:15 11:32 WBC 10.5 (4.0-10.5) K/mm3 RBC 3.47 L (4.1-5.4) M/mm3 Hgb 10.9 L (12.0-16.0) gm/dl Hct 33.8 L (35-47) % MCV 97.4 (78-100) fl MCH 31.4 (26-32) pg MCHC 32.2 (32-36) g/dl RDW 14.5 H (11.5-14.0) % Plt Count 410 (150-450) K/mm3 MPV 9.6 (7.5-11.0) fl Gran % 82.1 H (36.0-66.0) % Eos # (Auto) 0.02 (0-0.5) Absolute Lymphs (auto) 1.29 (1.0-4.6) Absolute Monos (auto) 0.54 (0.0-1.3) Lymphocytes % 12.3 L (24.0-44.0) % Monocytes % 5.1 (0.0-12.0) % Eosinophils % 0.2 (0.00-5.0) % Basophils % 0.3 (0.0-0.4) % Absolute Granulocytes 8.65 H (1.4-6.9) Basophils # 0.03 (0-0.4) Sodium 137 (137-145) mmol/L Potassium 4.5 (3.5-5.1) mmol/L Chloride 107 (98-107) mmol/L Carbon Dioxide 22 (22-30) mmol/L Anion Gap 12.6 (5-15) MEQ/L BUN 24 H (7-17) mg/dL Creatinine 1.04 (0.52-1.04) mg/dL Estimated GFR 53.7 ML/MIN Glucose 134 H (74-106) mg/dL POC Glucometer (74 to 106) mg/dL Hemoglobin A1c (4.5-6.0) % Calcium 9.2 (8.4-10.2) mg/dL Total Bilirubin 0.60 (0.2-1.3) mg/dL AST 43 H (14-36) U/L ALT 19 (0-35) U/L Alkaline Phosphatase 78 (38-126) U/L Troponin I 0.016 (0.000-0.034) ng/mL Serum Total Protein 6.5 (6.3-8.2) g/dL Albumin 3.8 (3.5-5.0) g/dL Lipase 28 (23-300) U/L Urine Color (YELLOW) Urine Appearance (CLEAR) Urine pH (5-6) Ur Specific [place] (1.005-1.025) Urine Protein (Negative) Urine Ketones (NEGATIVE) Urine Blood (0-5) Chong/ul Urine Nitrite (NEGATIVE) Urine Bilirubin (NEGATIVE) Urine Urobilinogen (0-1) mg/dL Ur Leukocyte Esterase (NEGATIVE) Urine WBC (Auto) (0-5) /HPF Urine RBC (Auto) (0-2) /HPF U Hyaline Cast (Auto) (0-2) /LPF U Epithel Cells (Auto) (FEW) /HPF Urine Bacteria (Auto) (NEGATIVE) /HPF Granular Casts (Auto) (NEGATIVE) /LPF Urine Mucus (Auto) (NEGATIVE) /HPF Urine Culture Reflexed (NO) Urine Glucose (NEGATIVE) mg/dL 06/19/20 06/19/20 06/19/20 Range/Units 11:40 14:35 15:58 WBC (4.0-10.5) K/mm3 RBC (4.1-5.4) M/mm3 Hgb (12.0-16.0) gm/dl Hct (35-47) % MCV (78-100) fl MCH (26-32) pg MCHC (32-36) g/dl RDW (11.5-14.0) % Plt Count (150-450) K/mm3 MPV (7.5-11.0) fl Gran % (36.0-66.0) % Eos # (Auto) (0-0.5) Absolute Lymphs (auto) (1.0-4.6) Absolute Monos (auto) (0.0-1.3) Lymphocytes % (24.0-44.0) % Monocytes % (0.0-12.0) % Eosinophils % (0.00-5.0) % Basophils % (0.0-0.4) % Absolute Granulocytes (1.4-6.9) Basophils # (0-0.4) Sodium (137-145) mmol/L Potassium (3.5-5.1) mmol/L Chloride (98-107) mmol/L Carbon Dioxide (22-30) mmol/L Anion Gap (5-15) MEQ/L BUN (7-17) mg/dL Creatinine (0.52-1.04) mg/dL Estimated GFR ML/MIN Glucose (74-106) mg/dL POC Glucometer 80 (74 to 106) mg/dL Hemoglobin A1c (4.5-6.0) % Calcium (8.4-10.2) mg/dL Total Bilirubin (0.2-1.3) mg/dL AST (14-36) U/L ALT (0-35) U/L Alkaline Phosphatase (38-126) U/L Troponin I 0.016 (0.000-0.034) ng/mL Serum Total Protein (6.3-8.2) g/dL Albumin (3.5-5.0) g/dL Lipase (23-300) U/L Urine Color ELDA (YELLOW) Urine Appearance SLIGHTLY CLOUDY (CLEAR) Urine pH 5.0 (5-6) Ur Specific [place] 1.021 (1.005-1.025) Urine Protein NEGATIVE (Negative) Urine Ketones TRACE (NEGATIVE) Urine Blood NEGATIVE (0-5) Chong/ul Urine Nitrite NEGATIVE (NEGATIVE) Urine Bilirubin SMALL (NEGATIVE) Urine Urobilinogen 4 (0-1) mg/dL Ur Leukocyte Esterase NEGATIVE (NEGATIVE) Urine WBC (Auto) 3-5 (0-5) /HPF Urine RBC (Auto) 3-5 (0-2) /HPF U Hyaline Cast (Auto) 11-25 (0-2) /LPF U Epithel Cells (Auto) RARE (FEW) /HPF Urine Bacteria (Auto) NONE SEEN (NEGATIVE) /HPF Granular Casts (Auto) 25-50 (NEGATIVE) /LPF Urine Mucus (Auto) SLIGHT (NEGATIVE) /HPF Urine Culture Reflexed NO (NO) Urine Glucose NEGATIVE (NEGATIVE) mg/dL 06/19/20 06/19/20 06/19/20 Range/Units 16:00 17:45 20:55 WBC (4.0-10.5) K/mm3 RBC (4.1-5.4) M/mm3 Hgb (12.0-16.0) gm/dl Hct (35-47) % MCV (78-100) fl MCH (26-32) pg MCHC (32-36) g/dl RDW (11.5-14.0) % Plt Count (150-450) K/mm3 MPV (7.5-11.0) fl Gran % (36.0-66.0) % Eos # (Auto) (0-0.5) Absolute Lymphs (auto) (1.0-4.6) Absolute Monos (auto) (0.0-1.3) Lymphocytes % (24.0-44.0) % Monocytes % (0.0-12.0) % Eosinophils % (0.00-5.0) % Basophils % (0.0-0.4) % Absolute Granulocytes (1.4-6.9) Basophils # (0-0.4) Sodium (137-145) mmol/L Potassium (3.5-5.1) mmol/L Chloride (98-107) mmol/L Carbon Dioxide (22-30) mmol/L Anion Gap (5-15) MEQ/L BUN (7-17) mg/dL Creatinine (0.52-1.04) mg/dL Estimated GFR ML/MIN Glucose (74-106) mg/dL POC Glucometer (74 to 106) mg/dL Hemoglobin A1c 4.78 (4.5-6.0) % Calcium (8.4-10.2) mg/dL Total Bilirubin (0.2-1.3) mg/dL AST (14-36) U/L ALT (0-35) U/L Alkaline Phosphatase (38-126) U/L Troponin I 0.022 0.034 (0.000-0.034) ng/mL Serum Total Protein (6.3-8.2) g/dL Albumin (3.5-5.0) g/dL Lipase (23-300) U/L Urine Color (YELLOW) Urine Appearance (CLEAR) Urine pH (5-6) Ur Specific [place] (1.005-1.025) Urine Protein (Negative) Urine Ketones (NEGATIVE) Urine Blood (0-5) Chong/ul Urine Nitrite (NEGATIVE) Urine Bilirubin (NEGATIVE) Urine Urobilinogen (0-1) mg/dL Ur Leukocyte Esterase (NEGATIVE) Urine WBC (Auto) (0-5) /HPF Urine RBC (Auto) (0-2) /HPF U Hyaline Cast (Auto) (0-2) /LPF U Epithel Cells (Auto) (FEW) /HPF Urine Bacteria (Auto) (NEGATIVE) /HPF Granular Casts (Auto) (NEGATIVE) /LPF Urine Mucus (Auto) (NEGATIVE) /HPF Urine Culture Reflexed (NO) Urine Glucose (NEGATIVE) mg/dL 06/19/20 06/19/20 06/20/20 Range/Units 20:59 23:45 05:20 WBC 9.6 (4.0-10.5) K/mm3 RBC 3.33 L (4.1-5.4) M/mm3 Hgb 10.6 L (12.0-16.0) gm/dl Hct 33.0 L (35-47) % MCV 99.1 (78-100) fl MCH 31.8 (26-32) pg MCHC 32.1 (32-36) g/dl RDW 14.6 H (11.5-14.0) % Plt Count 373 (150-450) K/mm3 MPV 9.4 (7.5-11.0) fl Gran % 77.4 H (36.0-66.0) % Eos # (Auto) 0.04 (0-0.5) Absolute Lymphs (auto) 1.46 (1.0-4.6) Absolute Monos (auto) 0.63 (0.0-1.3) Lymphocytes % 15.2 L (24.0-44.0) % Monocytes % 6.6 (0.0-12.0) % Eosinophils % 0.4 (0.00-5.0) % Basophils % 0.4 (0.0-0.4) % Absolute Granulocytes 7.43 H (1.4-6.9) Basophils # 0.04 (0-0.4) Sodium (137-145) mmol/L Potassium (3.5-5.1) mmol/L Chloride (98-107) mmol/L Carbon Dioxide (22-30) mmol/L Anion Gap (5-15) MEQ/L BUN (7-17) mg/dL Creatinine (0.52-1.04) mg/dL Estimated GFR ML/MIN Glucose (74-106) mg/dL POC Glucometer 84 (74 to 106) mg/dL Hemoglobin A1c (4.5-6.0) % Calcium (8.4-10.2) mg/dL Total Bilirubin (0.2-1.3) mg/dL AST (14-36) U/L ALT (0-35) U/L Alkaline Phosphatase (38-126) U/L Troponin I 0.029 (0.000-0.034) ng/mL Serum Total Protein (6.3-8.2) g/dL Albumin (3.5-5.0) g/dL Lipase (23-300) U/L Urine Color (YELLOW) Urine Appearance (CLEAR) Urine pH (5-6) Ur Specific [place] (1.005-1.025) Urine Protein (Negative) Urine Ketones (NEGATIVE) Urine Blood (0-5) Chong/ul Urine Nitrite (NEGATIVE) Urine Bilirubin (NEGATIVE) Urine Urobilinogen (0-1) mg/dL Ur Leukocyte Esterase (NEGATIVE) Urine WBC (Auto) (0-5) /HPF Urine RBC (Auto) (0-2) /HPF U Hyaline Cast (Auto) (0-2) /LPF U Epithel Cells (Auto) (FEW) /HPF Urine Bacteria (Auto) (NEGATIVE) /HPF Granular Casts (Auto) (NEGATIVE) /LPF Urine Mucus (Auto) (NEGATIVE) /HPF Urine Culture Reflexed (NO) Urine Glucose (NEGATIVE) mg/dL 06/20/20 Range/Units 05:20 WBC (4.0-10.5) K/mm3 RBC (4.1-5.4) M/mm3 Hgb (12.0-16.0) gm/dl Hct (35-47) % MCV (78-100) fl MCH (26-32) pg MCHC (32-36) g/dl RDW (11.5-14.0) % Plt Count (150-450) K/mm3 MPV (7.5-11.0) fl Gran % (36.0-66.0) % Eos # (Auto) (0-0.5) Absolute Lymphs (auto) (1.0-4.6) Absolute Monos (auto) (0.0-1.3) Lymphocytes % (24.0-44.0) % Monocytes % (0.0-12.0) % Eosinophils % (0.00-5.0) % Basophils % (0.0-0.4) % Absolute Granulocytes (1.4-6.9) Basophils # (0-0.4) Sodium 137 (137-145) mmol/L Potassium 4.1 (3.5-5.1) mmol/L Chloride 112 H (98-107) mmol/L Carbon Dioxide 20 L (22-30) mmol/L Anion Gap 9.0 (5-15) MEQ/L BUN 20 H (7-17) mg/dL Creatinine 0.85 (0.52-1.04) mg/dL Estimated GFR > 60.0 ML/MIN Glucose 103 (74-106) mg/dL POC Glucometer (74 to 106) mg/dL Hemoglobin A1c (4.5-6.0) % Calcium 8.5 (8.4-10.2) mg/dL Total Bilirubin 0.50 (0.2-1.3) mg/dL AST 35 (14-36) U/L ALT 14 (0-35) U/L Alkaline Phosphatase 61 (38-126) U/L Troponin I (0.000-0.034) ng/mL Serum Total Protein 5.4 L (6.3-8.2) g/dL Albumin 3.0 L (3.5-5.0) g/dL Lipase (23-300) U/L Urine Color (YELLOW) Urine Appearance (CLEAR) Urine pH (5-6) Ur Specific [place] (1.005-1.025) Urine Protein (Negative) Urine Ketones (NEGATIVE) Urine Blood (0-5) Chong/ul Urine Nitrite (NEGATIVE) Urine Bilirubin (NEGATIVE) Urine Urobilinogen (0-1) mg/dL Ur Leukocyte Esterase (NEGATIVE) Urine WBC (Auto) (0-5) /HPF Urine RBC (Auto) (0-2) /HPF U Hyaline Cast (Auto) (0-2) /LPF U Epithel Cells (Auto) (FEW) /HPF Urine Bacteria (Auto) (NEGATIVE) /HPF Granular Casts (Auto) (NEGATIVE) /LPF Urine Mucus (Auto) (NEGATIVE) /HPF Urine Culture Reflexed (NO) Urine Glucose (NEGATIVE) mg/dL Accuchecks Date 06/20/20 Date 06/19/20 Time 07:26 Time 15:58 - Radiology Impressions Radiology Exams & Impressions: Radiology Procedures Category Date Time Status ABDOMEN AND PELVIS W CONTRAST [CT] Stat Exams 06/19/20 11:32 Completed CHEST 1 VIEW (PORTABLE) Stat Exams 06/19/20 14:51 Completed - Other Procedures and Tests Respiratory Therapy 06/19/20 16:24 Respiratory Therapy Assessment DAILY Assessment/Plan (1) Ascites Current Visit: Yes Status: Acute Qualifiers: Ascites type: other type Qualified Code(s): R18.8 - Other ascites Assessment & Plan: schedule for paracentesis Code(s): R18.8 - OTHER ASCITES (2) Colonic obstruction Current Visit: Yes Status: Acute Assessment & Plan: Surgery to evaluate the CT seeing if immediate surgical intervention is warranted at this time or if pt. needs pathology from paracentesis with radiation and chemo to shrink the tumor Code(s): K56.609 - UNSP INTESTNL OBST, UNSP TO PARTIAL VERSUS COMPLETE OBST (3) Pelvic mass in female Current Visit: Yes Status: Acute Assessment & Plan: referral to heme/onc Code(s): R19.00 - INTRA-ABD AND PELVIC SWELLING, MASS AND LUMP, UNSP SITE
[2020-06-20 12:06] VITALS: BP 139/63; PULSE 76; O2SAT 93
[2020-06-20] MEDS ORDERED: PROTONIX 40 MG IV IV SCH (22:00)
== END 2020-06-20 15:25 | disposition home or self-care (01) | DRG 948 ==
LOC: ED 10:55 → MED SURG 15:28
PROVIDERS: ADMIT Family Medicine; ATTEND Family Medicine
DX: R18.8 Other ascites (principal); K56.609 Unspecified intestinal obstruction, unspecified as to partial versus complete obstruction; R19.00 Intra-abdominal and pelvic swelling, mass and lump, unspecified site; R11.2 Nausea with vomiting, unspecified; R10.84 Generalized abdominal pain; K59.00 Constipation, unspecified; Z79.01 Long term (current) use of anticoagulants; Z79.899 Other long term (current) drug therapy
CPT/HCPCS: 36000; 36415; 71045; 74177; 80053; 81001; 82947; 83036; 83690; 84484; 85025; 94760; 96360; 96361; 96374; 96375; 99285; J2060; J2270; J2405; A9270-GY

== ENCOUNTER 2020-06-22 01:17 | Inpatient (IN) | payer MEDICARE, OTHER ==
--- NOTE | 2020-06-22 01:24 | ERPHSYRPT ---
- History of Present Illness Time Seen by Provider: 06/22/20 01:24 Source: patient Exam Limitations: clinical condition Physician History: This is an 85-year-old white female who has a history of stroke in the past hypertension hypothyroidism and has been taking Plavix in the past. She was seen on 06/19/2020 through this emergency department and was admitted for abdom inal pain distention and vomiting episodes. The vomiting episodes were described primarily as dry heaves. 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 There is pelvic mass with extension of this mass causing colonic obstruction in the sigmoid and distal colon. There is also fecal stasis present. Patient states that she has not had a bowel movement in 2 weeks. Patient underwent general surgical consultation. The report from the general surgeon was there was no need for surgical intervention at this time. There was an order placed for paracentesis to be done as an outpatient on Tuesday June 23, 2020. However, the patient states that her abdomen is more distended and she is having trouble breathing. Patient denied chest pain. Timing/Duration: today Severity of Dyspnea-Max: moderate Severity of Dyspnea-Current: moderate Possible Cause: unknown cause (Static, malignant ascites intra-abdominally) Associated Symptoms: loss of appetite, No chest pain/discomfort Allergies/Adverse Reactions: No Known Drug Allergies Allergy (Verified 06/16/19 06:16) Home Medications: Multivitamin [Daily Multivitamin] 1 each PO DAILY 03/21/19 [History] Hx Tetanus, Diphtheria Vaccination/Date Given: No Hx Influenza Vaccination/Date Given: No Hx Pneumococcal Vaccination/Date Given: No Travel Risk - International Travel Have you traveled outside of the country in past 3 weeks: No - Coronavirus Screening Are you exhibiting any of the following symptoms?: No Close contact with a COVID-19 positive Pt in past 14-21 Days: No - Review of Systems Constitutional: No Symptoms Eyes: No Symptoms Ears, Nose, & Throat: No Symptoms Respiratory: Dyspnea Cardiac: No Symptoms Abdominal/Gastrointestinal: No Symptoms Genitourinary Symptoms: No Symptoms Musculoskeletal: No Symptoms Skin: No Symptoms Neurological: No Symptoms Psychological: No Symptoms Endocrine: No Symptoms Hematologic/Lymphatic: No Symptoms Immunological/Allergic: No Symptoms All Other Systems: Reviewed and Negative - Past Medical History Pertinent Past Medical History: Yes Neurological History: No Pertinent History ENT History: Cataracts Cardiac History: No Pertinent History Respiratory History: No Pertinent History Endocrine Medical History: No Pertinent History Musculoskeletal History: No Pertinent History GI Medical History: No Pertinent History History: No Pertinent History Psycho-Social History: No Pertinent History Female Reproductive Disorders: No Pertinent History - Past Surgical History Past Surgical History: Yes Neuro Surgical History: No Pertinent History Cardiac: No Pertinent History Respiratory: No Pertinent History Gastrointestinal: No Pertinent History Genitourinary: No Pertinent History Musculoskeletal: No Pertinent History Female Surgical History: No Pertinent History - Social History Smoking Status: Former smoker How long have you smoked: 61 yrs Exposure to second hand smoke: No Drug Use: none Patient Lives Alone: Yes - Nursing Vital Signs Nursing Vital Signs: Initial Vital Signs Pulse Rate 89 06/22/20 01:19 Respiratory Rate 18 06/22/20 01:19 Blood Pressure 183/91 06/22/20 01:19 O2 Sat by Pulse Oximetry 97 06/22/20 01:19 Pain Scale Pain Intensity 7 - Physical Exam General Appearance: mild distress, alert, anxiety, thin Eye Exam: PERRL/EOMI, eyes nml inspection Ears, Nose, Throat Exam: hearing grossly normal, normal ENT inspection Neck Exam: normal inspection, non-tender, supple, full range of motion Respiratory Exam: normal breath sounds, lungs clear, airway intact, No chest tenderness, No respiratory distress Cardiovascular/Chest Exam: normal heart sounds, regular rate/rhythm Abdominal/Gastrointestinal Exam: soft, normal bowel sounds, No tenderness Rectal Exam: not done Extremity Exam: non-tender, normal range of motion, normal inspection, no pedal edema, pelvis stable Neurologic Exam: alert, oriented x 3, cooperative, restaurant associate II-XII nml as tested, normal mood/affect, nml cerebellar function, nml station & gait, sensation nml Skin Exam: normal color, warm, dry Lymphatic Exam: No adenopathy SpO2 Interpretation: normal O2 Delivery: Room Air - Course Nursing assessment & vital signs reviewed: Yes EKG Interpreted by Me: RATE (93), Sinus Rhythm, NORMAL AXIS, NORMAL INTERVALS, NORMAL QRS, NORMAL ST-T, Other Ordered Tests: Active Orders 24 hr Category Date Time Status EKG-ER Only STAT Care 06/22/20 01:24 Active IV Insertion STAT Care 06/22/20 01:24 Active CHEST 1 VIEW (PORTABLE) Stat Exams 06/22/20 01:25 Taken CBC W DIFF Stat Lab 06/22/20 01:46 Completed CMP Stat Lab 06/22/20 01:46 Completed Lactic Acid Stat Lab 06/22/20 01:50 Completed NT PRO BNP Stat Lab 06/22/20 01:46 Completed TROPONIN Q3H Lab 06/22/20 01:46 Completed TROPONIN Q3H Lab 06/22/20 04:30 Ordered TROPONIN Q3H Lab 06/22/20 07:30 Ordered TROPONIN Q3H Lab 06/22/20 10:30 Ordered TROPONIN Q3H Lab 06/22/20 13:30 Ordered Transfer Order Routine Transfer 06/22/20 Ordered Medication Summary Generic Name Dose Route Start Last Admin Trade Name Freq PRN Reason Stop Dose Admin Sodium Chloride 1,000 mls @ 100 mls/hr 06/22/20 01:30 06/22/20 02:26 Sodium Chloride 0.9% 1000 Ml IV 07/22/20 01:29 Not Given .Q10H PAMELA Discontinued Medications Generic Name Dose Route Start Last Admin Trade Name Freq PRN Reason Stop Dose Admin Furosemide 40 mg 06/22/20 02:36 Lasix 40 Mg/4 Ml IV 06/22/20 02:37 STAT ONE Spironolactone 25 mg 06/22/20 02:38 Aldactone 25 Mg PO 06/22/20 02:39 STAT ONE Lab/Rad Data: Laboratory Result Diagrams 06/22/20 01:46 06/22/20 01:46 Laboratory Results 06/22/20 06/22/20 06/22/20 Range/Units 01:50 01:46 01:46 WBC (4.0-10.5) K/mm3 RBC (4.1-5.4) M/mm3 Hgb (12.0-16.0) gm/dl Hct (35-47) % MCV (78-100) fl MCH (26-32) pg MCHC (32-36) g/dl RDW (11.5-14.0) % Plt Count (150-450) K/mm3 MPV (7.5-11.0) fl Gran % (36.0-66.0) % Eos # (Auto) (0-0.5) Absolute Lymphs (auto) (1.0-4.6) Absolute Monos (auto) (0.0-1.3) Lymphocytes % (24.0-44.0) % Monocytes % (0.0-12.0) % Eosinophils % (0.00-5.0) % Basophils % (0.0-0.4) % Absolute Granulocytes (1.4-6.9) Basophils # (0-0.4) Sodium 135 L (137-145) mmol/L Potassium 4.1 (3.5-5.1) mmol/L Chloride 107 (98-107) mmol/L Carbon Dioxide 15 L* (22-30) mmol/L Anion Gap 16.8 H (5-15) MEQ/L BUN 32 H (7-17) mg/dL Creatinine 1.17 H (0.52-1.04) mg/dL Estimated GFR 46.8 ML/MIN Glucose 122 H (74-106) mg/dL Lactic Acid 1.3 (0.4-2.0) Calcium 8.9 (8.4-10.2) mg/dL Total Bilirubin 0.60 (0.2-1.3) mg/dL AST 39 H (14-36) U/L ALT 16 (0-35) U/L Alkaline Phosphatase 70 (38-126) U/L Troponin I 0.054 H* (0.000-0.034) ng/mL NT-Pro-B Natriuret Pep 8720 H (0-1800) pg/mL Serum Total Protein 6.0 L (6.3-8.2) g/dL Albumin 3.4 L (3.5-5.0) g/dL 06/22/20 Range/Units 01:46 WBC 11.4 H (4.0-10.5) K/mm3 RBC 3.44 L (4.1-5.4) M/mm3 Hgb 11.4 L (12.0-16.0) gm/dl Hct 33.0 L (35-47) % MCV 95.9 (78-100) fl MCH 33.1 H (26-32) pg MCHC 34.5 (32-36) g/dl RDW 14.4 H (11.5-14.0) % Plt Count 460 H (150-450) K/mm3 MPV 9.3 (7.5-11.0) fl Gran % 82.4 H (36.0-66.0) % Eos # (Auto) 0.01 (0-0.5) Absolute Lymphs (auto) 1.36 (1.0-4.6) Absolute Monos (auto) 0.60 (0.0-1.3) Lymphocytes % 11.9 L (24.0-44.0) % Monocytes % 5.3 (0.0-12.0) % Eosinophils % 0.1 (0.00-5.0) % Basophils % 0.3 (0.0-0.4) % Absolute Granulocytes 9.40 H (1.4-6.9) Basophils # 0.03 (0-0.4) Sodium (137-145) mmol/L Potassium (3.5-5.1) mmol/L Chloride (98-107) mmol/L Carbon Dioxide (22-30) mmol/L Anion Gap (5-15) MEQ/L BUN (7-17) mg/dL Creatinine (0.52-1.04) mg/dL Estimated GFR ML/MIN Glucose (74-106) mg/dL Lactic Acid (0.4-2.0) Calcium (8.4-10.2) mg/dL Total Bilirubin (0.2-1.3) mg/dL AST (14-36) U/L ALT (0-35) U/L Alkaline Phosphatase (38-126) U/L Troponin I (0.000-0.034) ng/mL NT-Pro-B Natriuret Pep (0-1800) pg/mL Serum Total Protein (6.3-8.2) g/dL Albumin (3.5-5.0) g/dL - Progress Progress: re-examined, unchanged Air Movement: good Progress Note: 06/22/20 02:44 Chest x-ray shows no acute cardiopulmonary process. Medical decision making: This patient has malignant intra-abdominal ascites. There is a large amount present. Patient states that her abdomen has increased in size and just 24 hours. This is likely causing pressure on her diaphragm fiona ping her from taking a full breath and therefore giving her the sensation of shortness of breath. Patient has had a general surgical consultation. There is a paracentesis scheduled for 06/23/2020. However, patient's states that her shortness of breath is worsening. She has evidence of CHF as well as chronic renal insufficiency. She denies chest pain. She has a rising troponin but the patient has opted to be DO NOT RESUSCITATE. She does not want any intervention in the event of a cardiac arrest. I spoke with Dr. Parnell, the patient's primary care physician, and we will bring the patient in and schedule her for a paracentesis for today. Blood Culture(s) Obtained: No Antibiotics given: No Discussed with : Kelton Counseled pt/family regarding: lab results, diagnosis, need for follow-up, rad results - Departure Departure Disposition: In-patient Admission Clinical Impression: Malignant ascites, Shortness of breath, Elevated troponin, Chronic renal failure Condition: Stable Critical Care Time: No Referrals: MING PARNELL [Primary Care Provider] -
[2020-06-22] MEDS ORDERED: Sodium Chloride 0.9% 1000 ML 1,000 ML IV SCH (01:30)
[2020-06-22 01:50] LABS: BASOPHIL % 0.3 % (0.0-0.4); Basophil (Absolute #) 0.03 (0-0.4); Eosinophil % 0.1 % (0.00-5.0); Eosinophil (Absolute #) 0.01 (0-0.5); Hemoglobin 11.4 gm/dl (12.0-16.0); Lymphocyte (Absolute #) 1.36 (1.0-4.6); Lymphocytes % 11.9 % (24.0-44.0); Mean Cell Volume 95.9 fl (78-100); Mean Corpuscular Hemoglobin 33.1 pg (26-32); Mean Corpuscular Hgb Concent. 34.5 g/dl (32-36); Mean Platelet Volume 9.3 fl (7.5-11.0); Monocytes % 5.3 % (0.0-12.0); Neutrophil % 82.4 % (36.0-66.0); Platelet Count 460 K/mm3 (150-450); Red Blood Count 3.44 M/mm3 (4.1-5.4); Red Cell Distribution Width 14.4 % (11.5-14.0); White Blood Count 11.4 K/mm3 (4.0-10.5)
[2020-06-22 02:19] LABS: ALBUMIN 3.4 g/dL (3.5-5.0); ANION GAP 16.8 MEQ/L (5-15); BILIRUBIN,TOTAL 0.6 mg/dL (0.2-1.3); Calcium 8.9 mg/dL (8.4-10.2); Creatinine 1 1.17 mg/dL (0.52-1.04); EST GLOMERULAR FILTRATION RATE 46.8 ML/MIN; Potassium 4.1 mmol/L (3.5-5.1)
[2020-06-22] MEDS ORDERED: Sodium Chloride 0.9% 1000 ML 1,000 ML ONE (02:23)
[2020-06-22] MEDS ORDERED: Lasix 40 MG/4 ML IV ONE (02:36)
[2020-06-22] MEDS ORDERED: Aldactone 25 MG PO ONE (02:38)
[2020-06-22] MEDS ORDERED: Lasix 40 MG/4 ML ONE (03:08)
[2020-06-22 07:54] VITALS: O2SAT 95
--- NOTE | 2020-06-22 08:46 | XRAY ---
Indication: Short of breath. Comparison: June 19, 2020. Portable apical lordotic demonstrates NG tube removal. Remaining chest unchanged again with minimal bibasilar subsegmental atelectasis/scarring, scattered vascular calcifications, osteopenia, and bony degenerative changes. Heart is not enlarged. No new/acute findings.
[2020-06-22] MEDS ORDERED: MORPHINE SULFATE 2 MG INJ IV ONE (09:08)
[2020-06-22] MEDS ORDERED: SUBLIMAZE 100 MCG/2 ML IV ONE ×2 (09:08→10:12)
[2020-06-22] MEDS ORDERED: Toprol-Xl 25MG Tablets PO SCH (10:00)
[2020-06-22] MEDS ORDERED: PLAVIX 75 MG Tablet PO SCH (10:00)
[2020-06-22] MEDS ORDERED: THERAGRAN MULTIVITAMIN PO SCH (10:00)
[2020-06-22] MEDS ORDERED: SYNTHROID 25 MCG PO SCH (10:00)
[2020-06-22] MEDS ORDERED: MORPHINE SULFATE 4 MG INJ IV PRN (10:12)
[2020-06-22] MEDS ORDERED: HYDROCODONE PO PRN ×2 (10:17→10:23)
[2020-06-22] MEDS ORDERED: ZOFRAN ODT 4 MG PO PRN (10:17)
[2020-06-22] MEDS ORDERED: APAP PO PRN ×2 (10:17→10:23)
--- NOTE | 2020-06-22 10:19 | PCM.SSS ---
History of Present Illness - Chief Complaint Chief Complaint: Malignant ascites Date: 06/22/20 History of Present Illness: is a 85 year old female, represented to ER this am with worsening ascites and abdominal pain. Pt. with radiographic fur tinter tumor, did not meet criteria per surgery on Monday for diversion of bowel, has still not had any BM. - Review of Systems Constitutional: No Fever, No Chills Eyes: No Symptoms Ears, Nose, & Throat: No Symptoms Respiratory: No Cough, No Short Of Breath Cardiac: No Chest Pain, No Edema, No Syncope Abdominal/Gastrointestinal: Abdominal Pain, Nausea, Constipation, Appetite Changes, No Vomiting, No Diarrhea Genitourinary Symptoms: Frequency, Hesitancy, No Dysuria Musculoskeletal: No Back Pain, No Neck Pain Skin: No Rash Neurological: No Dizziness, No Focal Weakness, No Sensory Changes Psychological: No Symptoms Endocrine: No Symptoms Hematologic/Lymphatic: No Symptoms Immunological/Allergic: No Symptoms Medications & Allergies Home Medications: Home Medication List Multivitamin [Daily Multivitamin] 1 each PO DAILY 03/21/19 [History Confirmed 06/22/20] Clopidogrel Bisulfate 75 mg [PLAVIX 75 MG Tablet] 75 mg PO DAILY #30 tablet 06/18/19 [Rx Confirmed 06/22/20] Levothyroxine Sodium 25 Mcg [Synthroid 25 Mcg] 25 mcg PO QAM #30 tablet 06/18/19 [Rx Confirmed 06/22/20] Metoprolol Succinate 25 mg Xl* [Toprol-Xl 25MG Tablets] 25 mg PO DAILY #30 tab 06/18/19 [Rx Confirmed 06/22/20] Docusate Sodium 100 mg [Colace 100 MG] 100 mg PO BID #20 cap 06/20/20 [Rx Confirmed 06/22/20] Hydrocodone/APAP 5-325 Tab^^^ [[place] 5-325 Tablet^^^] 1 each PO TID PRN #21 tablet MDD 6 06/20/20 [Rx Confirmed 06/22/20] Ondansetron ODT 4 MG [Zofran Odt 4 mg] 4 mg PO Q6H PRN PRN #10 tab.rapdis 06/20/20 [Rx Confirmed 06/22/20] Polyethylene Glycol 3350 [Miralax Powder] 1 cap PO DAILY 30 Days bottle 06/20/20 [Rx Confirmed 06/22/20] Allergies/Adverse Reactions: Allergies Allergy/AdvReac Type Severity Reaction Status Date / Time No Known Drug Allergies Allergy Verified 06/22/20 03:13 - Past Medical History Past Medical History: Yes Neurological History: No Pertinent History ENT History: Cataracts Cardiac History: No Pertinent History CARDIAC HISTORY: Other (heart murmur) Respiratory History: No Pertinent History Endocrine Medical History: No Pertinent History Musculoskelatal History: No Pertinent History GI Medical History: No Pertinent History History: No Pertinent History Pyscho-Social History: No Pertinent History Reproductive Disorders: No Pertinent History Comment: abd distention- pt states she is not sure what is causing abd distention - Female History Are you now?: No - Past Surgical History Past Surgical History: Yes Neuro Surgical History: No Pertinent History Cardiac History: No Pertinent History Respiratory Surgery: No Pertinent History GI Surgical History: No Pertinent History Genitourinary Surgical Hx: No Pertinent History Musculskeletal Surgical Hx: No Pertinent History Female Surgical History: No Pertinent History - Social History Smoking Status: Former smoker How long have you smoked: 61 yrs Exposure to second hand smoke: No Alcohol: Occasionally Drug Use: none - Physical Exam Vital Signs: Vital Signs - 24 hr Temp Pulse Resp BP Pulse Ox 06/22/20 07:53 99.0 F 89 20 146/68 95 06/22/20 04:17 97.4 F 86 18 144/65 96 06/22/20 03:05 82 18 154/78 97 06/22/20 02:18 79 18 174/77 96 06/22/20 01:19 89 18 183/91 97 General Appearance: mild distress Neurologic Exam: alert, cooperative Eye Exam: eyes nml inspection Ears, Nose, Throat Exam: normal ENT inspection Respiratory Exam: normal breath sounds, lungs clear, No chest tenderness Cardiovascular Exam: regular rate/rhythm, normal heart sounds, normal peripheral pulses Gastrointestinal/Abdomen Exam: soft, tenderness, distention Pelvic Exam: not done Rectal Exam: deferred Back Exam: normal inspection Extremity Exam: normal inspection Results - Labs Lab/Micro Results: Lab Results-Last 24 Hours 06/22/20 06/22/20 06/22/20 Range/Units 01:46 01:46 01:46 WBC 11.4 H (4.0-10.5) K/mm3 RBC 3.44 L (4.1-5.4) M/mm3 Hgb 11.4 L (12.0-16.0) gm/dl Hct 33.0 L (35-47) % MCV 95.9 (78-100) fl MCH 33.1 H (26-32) pg MCHC 34.5 (32-36) g/dl RDW 14.4 H (11.5-14.0) % Plt Count 460 H (150-450) K/mm3 MPV 9.3 (7.5-11.0) fl Gran % 82.4 H (36.0-66.0) % Eos # (Auto) 0.01 (0-0.5) Absolute Lymphs (auto) 1.36 (1.0-4.6) Absolute Monos (auto) 0.60 (0.0-1.3) Lymphocytes % 11.9 L (24.0-44.0) % Monocytes % 5.3 (0.0-12.0) % Eosinophils % 0.1 (0.00-5.0) % Basophils % 0.3 (0.0-0.4) % Absolute Granulocytes 9.40 H (1.4-6.9) Basophils # 0.03 (0-0.4) Sodium 135 L (137-145) mmol/L Potassium 4.1 (3.5-5.1) mmol/L Chloride 107 (98-107) mmol/L Carbon Dioxide 15 L* (22-30) mmol/L Anion Gap 16.8 H (5-15) MEQ/L BUN 32 H (7-17) mg/dL Creatinine 1.17 H (0.52-1.04) mg/dL Estimated GFR 46.8 ML/MIN Glucose 122 H (74-106) mg/dL Lactic Acid (0.4-2.0) Calcium 8.9 (8.4-10.2) mg/dL Total Bilirubin 0.60 (0.2-1.3) mg/dL AST 39 H (14-36) U/L ALT 16 (0-35) U/L Alkaline Phosphatase 70 (38-126) U/L Troponin I 0.054 H* (0.000-0.034) ng/mL NT-Pro-B Natriuret Pep 8720 H (0-1800) pg/mL Serum Total Protein 6.0 L (6.3-8.2) g/dL Albumin 3.4 L (3.5-5.0) g/dL 06/22/20 06/22/20 06/22/20 Range/Units 01:50 04:35 07:30 WBC (4.0-10.5) K/mm3 RBC (4.1-5.4) M/mm3 Hgb (12.0-16.0) gm/dl Hct (35-47) % MCV (78-100) fl MCH (26-32) pg MCHC (32-36) g/dl RDW (11.5-14.0) % Plt Count (150-450) K/mm3 MPV (7.5-11.0) fl Gran % (36.0-66.0) % Eos # (Auto) (0-0.5) Absolute Lymphs (auto) (1.0-4.6) Absolute Monos (auto) (0.0-1.3) Lymphocytes % (24.0-44.0) % Monocytes % (0.0-12.0) % Eosinophils % (0.00-5.0) % Basophils % (0.0-0.4) % Absolute Granulocytes (1.4-6.9) Basophils # (0-0.4) Sodium (137-145) mmol/L Potassium (3.5-5.1) mmol/L Chloride (98-107) mmol/L Carbon Dioxide (22-30) mmol/L Anion Gap (5-15) MEQ/L BUN (7-17) mg/dL Creatinine (0.52-1.04) mg/dL Estimated GFR ML/MIN Glucose (74-106) mg/dL Lactic Acid 1.3 (0.4-2.0) Calcium (8.4-10.2) mg/dL Total Bilirubin (0.2-1.3) mg/dL AST (14-36) U/L ALT (0-35) U/L Alkaline Phosphatase (38-126) U/L Troponin I 0.047 H* 0.050 H* (0.000-0.034) ng/mL NT-Pro-B Natriuret Pep (0-1800) pg/mL Serum Total Protein (6.3-8.2) g/dL Albumin (3.5-5.0) g/dL - Radiology Impressions Radiology Exams & Impressions: Radiology Procedures Category Date Time Status CHEST 1 VIEW (PORTABLE) Stat Exams 06/22/20 01:25 Completed Assessment/Plan (1) Malignant ascites Current Visit: Yes Status: Acute Assessment & Plan: unable to do paracentesis today, will transfer to fur tinter/onc in [place] for further care and pain control Code(s): R18.0 - MALIGNANT ASCITES (2) Pelvic mass in female Current Visit: No Status: Acute Assessment & Plan: [place] [facility] evaluation of options and plans Code(s): R19.00 - INTRA-ABD AND PELVIC SWELLING, MASS AND LUMP, UNSP SITE Hospital Summary - Hospital Course Hospital Course: Pt. admitted pain controlled but unable to do much else at this time, pt. will better served with oversight of fur tinter/onc. Stable for transfer for full assessment of treatment options. - Vitals & Intake/Output Vital Signs: Vital Signs Temperature 99.0 F 06/22/20 07:53 Pulse Rate 89 06/22/20 07:53 Respiratory Rate 20 06/22/20 07:53 Blood Pressure 146/68 06/22/20 07:53 O2 Sat by Pulse Oximetry 95 06/22/20 07:53 Intake & Output: Intake & Output 06/19/20 06/20/20 06/21/20 06/22/20 11:59 11:59 11:59 11:59 Intake Total 0 Output Total 350 Balance -350 Weight 60.5 kg - Lab Result Diagrams: 06/22/20 01:46 06/22/20 01:46 Lab Results-Last 24 Hrs: Lab Results-Last 24 Hours 06/22/20 06/22/20 06/22/20 Range/Units 01:46 01:46 01:46 WBC 11.4 H (4.0-10.5) K/mm3 RBC 3.44 L (4.1-5.4) M/mm3 Hgb 11.4 L (12.0-16.0) gm/dl Hct 33.0 L (35-47) % MCV 95.9 (78-100) fl MCH 33.1 H (26-32) pg MCHC 34.5 (32-36) g/dl RDW 14.4 H (11.5-14.0) % Plt Count 460 H (150-450) K/mm3 MPV 9.3 (7.5-11.0) fl Gran % 82.4 H (36.0-66.0) % Eos # (Auto) 0.01 (0-0.5) Absolute Lymphs (auto) 1.36 (1.0-4.6) Absolute Monos (auto) 0.60 (0.0-1.3) Lymphocytes % 11.9 L (24.0-44.0) % Monocytes % 5.3 (0.0-12.0) % Eosinophils % 0.1 (0.00-5.0) % Basophils % 0.3 (0.0-0.4) % Absolute Granulocytes 9.40 H (1.4-6.9) Basophils # 0.03 (0-0.4) Sodium 135 L (137-145) mmol/L Potassium 4.1 (3.5-5.1) mmol/L Chloride 107 (98-107) mmol/L Carbon Dioxide 15 L* (22-30) mmol/L Anion Gap 16.8 H (5-15) MEQ/L BUN 32 H (7-17) mg/dL Creatinine 1.17 H (0.52-1.04) mg/dL Estimated GFR 46.8 ML/MIN Glucose 122 H (74-106) mg/dL Lactic Acid (0.4-2.0) Calcium 8.9 (8.4-10.2) mg/dL Total Bilirubin 0.60 (0.2-1.3) mg/dL AST 39 H (14-36) U/L ALT 16 (0-35) U/L Alkaline Phosphatase 70 (38-126) U/L Troponin I 0.054 H* (0.000-0.034) ng/mL NT-Pro-B Natriuret Pep 8720 H (0-1800) pg/mL Serum Total Protein 6.0 L (6.3-8.2) g/dL Albumin 3.4 L (3.5-5.0) g/dL 06/22/20 06/22/20 06/22/20 Range/Units 01:50 04:35 07:30 WBC (4.0-10.5) K/mm3 RBC (4.1-5.4) M/mm3 Hgb (12.0-16.0) gm/dl Hct (35-47) % MCV (78-100) fl MCH (26-32) pg MCHC (32-36) g/dl RDW (11.5-14.0) % Plt Count (150-450) K/mm3 MPV (7.5-11.0) fl Gran % (36.0-66.0) % Eos # (Auto) (0-0.5) Absolute Lymphs (auto) (1.0-4.6) Absolute Monos (auto) (0.0-1.3) Lymphocytes % (24.0-44.0) % Monocytes % (0.0-12.0) % Eosinophils % (0.00-5.0) % Basophils % (0.0-0.4) % Absolute Granulocytes (1.4-6.9) Basophils # (0-0.4) Sodium (137-145) mmol/L Potassium (3.5-5.1) mmol/L Chloride (98-107) mmol/L Carbon Dioxide (22-30) mmol/L Anion Gap (5-15) MEQ/L BUN (7-17) mg/dL Creatinine (0.52-1.04) mg/dL Estimated GFR ML/MIN Glucose (74-106) mg/dL Lactic Acid 1.3 (0.4-2.0) Calcium (8.4-10.2) mg/dL Total Bilirubin (0.2-1.3) mg/dL AST (14-36) U/L ALT (0-35) U/L Alkaline Phosphatase (38-126) U/L Troponin I 0.047 H* 0.050 H* (0.000-0.034) ng/mL NT-Pro-B Natriuret Pep (0-1800) pg/mL Serum Total Protein (6.3-8.2) g/dL Albumin (3.5-5.0) g/dL - Radiology Exams Ordered Rad Exams-Entire Visit: Radiology Procedures Category Date Time Status CHEST 1 VIEW (PORTABLE) Stat Exams 06/22/20 01:25 Completed - Discharge Disposition: Home, Self-Care Condition: Stable Prescriptions: No Action Multivitamin [Daily Multivitamin] 1 each PO DAILY Clopidogrel Bisulfate 75 mg [PLAVIX 75 MG Tablet] 75 mg PO DAILY #30 tablet Levothyroxine Sodium 25 Mcg [Synthroid 25 Mcg] 25 mcg PO QAM #30 tablet Metoprolol Succinate 25 mg Xl* [Toprol-Xl 25MG Tablets] 25 mg PO DAILY #30 tab Ondansetron ODT 4 MG [Zofran Odt 4 mg] 4 mg PO Q6H PRN PRN #10 tab .rapdis PRN Reason: Nausea Docusate Sodium 100 mg [Colace 100 MG] 100 mg PO BID #20 cap Polyethylene Glycol 3350 [Miralax Powder] 1 cap PO DAILY 30 Days bottle Hydrocodone/APAP 5-325 Tab^^^ [[place] 5-325 Tablet^^^] 1 each PO TID PRN #21 tablet MDD 6 PRN Reason: Pain Follow up with: MING PARNELL [Primary Care Provider] - JEREMIAH ZHOU [COURTESY STAFF] - Forms: Work/School Release Form
[2020-06-22] MEDS ORDERED: Pepcid 20 MG VIAL IV SCH (10:30)
[2020-06-22] MEDS ORDERED: Colace 100 MG PO SCH (10:30)
[2020-06-22 12:35] VITALS: BP 154/72; PULSE 87
[2020-06-23] MEDS ORDERED: POLYETHYLENE GLYCOL PO SCH (10:00)
[2020-06-23] MEDS ORDERED: NON-FORMULARY ITEM (Multivitamin [Daily Multivitamin] 1 EACH) PO SCH (10:00)
[2020-06-23] MEDS ORDERED: Miralax Powder 17GM PACKET PO SCH (10:00)
== END 2020-06-22 13:00 | DRG 948 ==
LOC: ED 01:17 → MED SURG 03:06
PROVIDERS: ADMIT Family Medicine; ATTEND Family Medicine
DX: R18.0 Malignant ascites (principal); Z79.899 Other long term (current) drug therapy; Z79.01 Long term (current) use of anticoagulants; R19.00 Intra-abdominal and pelvic swelling, mass and lump, unspecified site
CPT/HCPCS: 36000; 36415; 71045; 80053; 83605; 83880; 84484; 85025; 86304; 93005; 96360; 96374; 99284; J1940; J2270; J3010; A9270-GY